=== PATIENT | female | born 1965 | race Two or more races ===

== ENCOUNTER 2021-12-27 17:18 | Emergency (ER) | payer MEDICAID ==
[~2021-12-27] VITALS: Ht 152.4 cm; Wt 54.4 kg
[2021-12-27] MEDS ORDERED: cefTRIAXone W LIDOCAINE 1 GM IM IM ONE (19:45)
[2021-12-27] MEDS ORDERED: AMOX-277 PO (20:02)
[2021-12-27] MEDS ORDERED: IBUP800T26 PO (20:02)
[2021-12-27 20:51] VITALS: BP 139/76
== END 2021-12-27 21:10 | disposition home or self-care (01) ==
LOC: ER 17:18
DX: S61.451A Open bite of right hand, initial encounter (principal); L03.113 Cellulitis of right upper limb; W55.01XA Bitten by cat, initial encounter; Y93.89 Activity, other specified; Y92.89 Other specified places as the place of occurrence of the external cause; Y99.8 Other external cause status
CPT/HCPCS: 96372; 99283; J0696

== ENCOUNTER 2022-02-08 10:42 | Emergency (ER) | payer MEDICAID, OTHER ==
[~2022-02-08] VITALS: Ht 152.4 cm; Wt 52.1 kg
[~2022-02-08 10:42] MED LIST: AMOX-277 PO; IBUP800T26 PO
[2022-02-08] MEDS ORDERED: SODIUM CHLORIDE 0.9% 1,000 ML IV ONE ×2 (11:30→12:45)
[2022-02-08] MEDS ORDERED: FAMOTIDINE (10MG/ML) 2ML VL IV ONE (11:45)
[2022-02-08] MEDS ORDERED: METOCLOPRAMIDE HCL 5MG/ml INJ 2ml VIAL IV ONE (11:45)
[2022-02-08] MEDS ORDERED: KETOROLAC TROMETH 30 MG/ML 1ML VIAL IV ONE (11:45)
[2022-02-08 11:57] LABS: Basophils # (auto) 0 10 ^3/uL (0-0.2); Basophils % (auto) 0.8 % (0.0-2.0); Eosinophils # (auto) 0.3 10 ^3/uL (0-0.8); Hematocrit 38.2 % (36.0-46.0); Hemoglobin 12.1 g/dL (12.2-16.2); Lymphocytes # (auto) 1.7 10 ^3/uL (0.4-5.4); Lymphocytes % (auto) 32.4 % (10.0-50.0); Mean Corpuscular Hgb Conc. 31.8 g/dL (32.0-36.0); Mean Corpuscular Volume 84.9 fL (80.0-100.0); Monocytes # (auto) 0.5 10 ^3/uL (0-1.3); Monocytes % (auto) 9.7 % (0.0-12.0); Neutrophils # (auto) 2.7 10 ^3/uL (1.6-8.6); Neutrophils % (auto) 52.1 % (37.0-80.0); Nucleated Red Blood Cells % 0.1 %; Red Cell Distribution Width 17.8 % (11.8-14.3); White Blood Cell 5.2 10^3/uL (4.4-10.8)
[2022-02-08 12:15] LABS: Urine WBC None Seen /hpf (0 - 5)
[2022-02-08 12:28] LABS: Albumin 3.5 g/dL (3.4-5.0); BUN/Creatinine Ratio 15.4; Calcium 8.7 mg/dL (8.5-10.1); Potassium 3.3 mmol/L (3.5-5.1)
[2022-02-08 12:31] LABS: Bilirubin, Total 0.3 mg/dL (0.2-1.0); Total Protein 7.5 g/dL (6.4-8.2)
[2022-02-08 12:34] LABS: Urine Bacteria FEW /hpf (None Seen); Urine Blood Negative /uL (Negative); Urine Specific Gravity 1.002 (1.001-1.035)
[2022-02-08 12:51] LABS: Amphetamine Screen, Urine NEGATIVE (NEGATIVE); Barbiturate Scree,Urine NEGATIVE (NEGATIVE); Benzodiazephine Screen, Urine NEGATIVE (NEGATIVE); Cannabinoid Screen, Urine NEGATIVE (NEGATIVE); Cocaine Screen, Urine NEGATIVE (NEGATIVE); Opiate Scree,Urine NEGATIVE (NEGATIVE); Phencyclidine Screen, Urine NEGATIVE (NEGATIVE)
[2022-02-08] MEDS ORDERED: DICY10CA PO (13:04)
[2022-02-08] MEDS ORDERED: OMEP-434 PO (13:04)
[2022-02-08] MEDS ORDERED: METO-281 PO (13:04)
[2022-02-08 13:20] VITALS: BP 115/65
== END 2022-02-08 13:41 | disposition home or self-care (01) ==
LOC: ER 10:42
DX: K29.20 Alcoholic gastritis without bleeding (principal); F10.10 Alcohol abuse, uncomplicated; Z79.1 Long term (current) use of non-steroidal anti-inflammatories (NSAID); Z79.2 Long term (current) use of antibiotics; Z79.899 Other long term (current) drug therapy; Y90.2 Blood alcohol level of 40-59 mg/100 ml
CPT/HCPCS: 36415; 76705; 80053; 80307; 80320; 81001; 83690; 85025; 96361; 96374; 96375; 99284; J1885; J2765; J3490; J7030

== ENCOUNTER 2024-06-02 16:16 | Emergency (ER) | payer OTHER ==
[~2024-06-02] VITALS: Ht 152.4 cm; Wt 54.0 kg
[~2024-06-02 16:16] MED LIST changes: -AMOX-277 PO; +AMOX875T4 PO; +IBUP-1455 PO; -IBUP800T26 PO; +METO-281 PO; +OMEP-434 PO
[2024-06-02 16:18] VITALS: BP 162/71; RESP 18; O2SAT 98
[2024-06-02 16:33] LABS: Basophils # (auto) 0 10 ^3/uL (0-0.2); Eosinophils # (auto) 0.3 10 ^3/uL (0-0.8); Lymphocytes # (auto) 2.8 10 ^3/uL (0.4-5.4); Monocytes # (auto) 0.6 10 ^3/uL (0-1.3); Neutrophils # (auto) 3.2 10 ^3/uL (1.6-8.6)
[2024-06-02 16:34] LABS: Basophils % (auto) 0.4 % (0.0-2.0); Eosinophils % (auto) 3.9 % (0.0-7.0); Hematocrit 35.6 % (36.0-46.0); Hemoglobin 11.7 g/dL (12.2-16.2); Lymphocytes % (auto) 40.8 % (10.0-50.0); Mean Corpuscular Hemoglobin 25.5 pg (28.0-32.0); Mean Corpuscular Hgb Conc. 32.7 g/dL (32.0-36.0); Monocytes % (auto) 8.6 % (0.0-12.0); Neutrophils % (auto) 46.3 % (37.0-80.0); Nucleated Red Blood Cells % 0.2 %; Platelet Count (auto) 221 10^3/uL (140-450); Red Blood Cells 4.57 10^6/uL (4.0-5.20); Red Cell Distribution Width 17.2 % (11.8-14.3); White Blood Cell 6.9 10^3/uL (4.4-10.8)
[2024-06-02 16:50] LABS: Alanine Aminotransferase 31 U/L (7-40); Albumin 4.3 g/dL (3.2-4.8); Alkaline Phosphatase 76 U/L (46-116); Anion Gap 7 (5-15); Aspartate Aminotransferase 15 U/L (13-40); BUN/Creatinine Ratio 17.9 (10.0-20.0); Bilirubin, Total 0.2 mg/dL (0.2-1.0); Blood Urea Nitrogen 14 mg/dL (9-23); Calcium 9.1 mg/dL (8.7-10.4); Carbon Dioxide 27 mmol/L (20-31); Chloride 107 mmol/L (98-107); Glucose 95 mg/dL (74-106); Potassium 3.6 mmol/L (3.5-5.1); Sodium 141 mmol/L (136-145)
[2024-06-02 16:51] LABS: Total Protein 6.7 g/dL (5.7-8.2)
--- NOTE | 2024-06-02 16:57 | DVH ---
EXAM: XY CHEST XRAY 1 VIEW TECHNIQUE: Single frontal chest radiograph CLINICAL HISTORY: chest pain COMPARISON: None Findings/Impression: Frontal chest radiograph demonstrates no acute osseous or superficial soft tissue abnormalities. The trachea is midline. The cardiac silhouette and mediastinum are within normal limits. No pneumothorax, pleural effusions, or consolidations.
--- NOTE | 2024-06-02 17:01 | ED.PDOC ---
HPI Comments A 59 year old female presents to the ED with a chief complaint of chest pain onset today about 12 hours ago. Patient states she is currently experiencing LT sided chest pain, non radiating and describes it as a sharp pain. She noticed pain is worse with movement and touch. Denies any past medical history as well as shortness of breath, nausea, vomiting, diarrhea, headache, dizziness. No other symptoms or modifying factors present at this time. Chief Complaint: Chest Pain Time Seen by MD: 16:50 Primary Care Provider: NONE Reviewed Notes: Medications, Allergies Allergies: Coded Allergies: NO KNOWN ALLERGIES (Unverified , 05/01/15) Home Meds Active Scripts Omeprazole Magnesium (Omeprazole) 20 Mg Tab, 20 MG PO BID, #40 TAB Prov:JIA VITALE 02/08/22 Metoclopramide Hcl (Reglan) 10 Mg Tab, 10 MG PO BID, #20 TAB Prov:JIA VITALE 02/08/22 Ibuprofen Micronized (Ibuprofen) 800 Mg Tab, 800 MG PO TID PRN, #30 TAB Prov:SUMMER EDGE 12/27/21 Amoxicillin & Pot Clavulanate (Amoxicillin/Potassium Cla) 875 Mg Tab, 1 TAB PO BID for 10 Days, #20 TAB Prov:SUMMER EDGE 12/27/21 Information Source: Patient Mode of Arrival: Ambulatory Severity: Moderate Timing: Hours Duration: Since onset Prehospital treatment: None Location: Chest (L) Quality: Sharp Cardiac Risk Factors: None PE Risk Factors: None History of: None Modifying Factors: Movement Associated Signs and Symptoms: None Past Medical History PAST MEDICAL HISTORY: Denies Surgical History: Denies all surgeries OCC THERAPIST History: No Pertinent OCC THERAPIST History Family History Family History: Reviewed,noncontributory to illness Social History Smoker: Non-Smoker Alcohol: Heavy Drugs: Denies Drug Use Lives In: Home Constitutional: denies: chills, diaphoresis, fatigue, fever, malaise, sweats, weakness, others EENTM: denies: blurred vision, double vision, ear bleeding, ear discharge, ear drainage, ear pain, ear ringing, eye pain, eye redness, hearing loss, mouth pain, mouth swelling, nasal discharge, nose bleeding, nose congestion, nose pain, photophobia, tearing, throat pain, throat swelling, voice changes, others Respiratory: denies: cough, hemoptysis, orthopnea, SOB at rest, shortness of breath, SOB with excertion, stridor, wheezing, others Cardiovascular: reports: chest pain; denies: dizzy spells, diaphoresis, Dyspnea on exertion, edema, irregular heart beat, left arm pain, lightheadedness, palpitations, PND, syncope, others Gastrointestinal: denies: abdomen distended, abdominal pain, blood streaked bowels, constipated, diarrhea, dysphagia, difficulty swallowing, hematemesis, melena, nausea, poor appetite, poor fluid intake, rectal bleeding, rectal pain, vomiting, others Genitourinary: denies: abnormal vagina bleeding, burning, dyspareunia, dysuria, flank pain, frequency, hematuria, incontinence, pain, , vagina discharge, urgency, others Neurological: denies: dizziness, fainting, headache, left sided numbness, left sided weakness, numbness, paresthesia, pre-existing deficit, right sided numbness, right sided weakness, seizure, speech problems, tingling, tremors, we akness, others Musculoskeletal: denies: back pain, gout, joint pain, joint swelling, muscle pain, muscle stiffness, neck pain, others Integumetry: denies: bruises, change in color, change in hair/nails, dryness, laceration, lesions, lumps, rash, wounds, others Allergic/Immunocompromised: denies: Difficulty Healing, Frequent Infections, Hives, Itching, others Hematologic/Lymphatic: denies: anemia, blood clots, easy bleeding, easy bruising, swollen glands, others Endocrine: denies: excessive hunger, excessive sweating, excessive thirst, excessive urination, flushing, intolerance to cold, intolerance to heat, unexplained weight gain, unexplained weight loss, others Psychiatric: denies: anxiety, bipolar disorder, depression, hopeless, panic disorder, schizophrenia, sleepless, suicidal, others All Other Systems: Reviewed and Negative Physical Exam General Appearance: No Apparent Distress, Normal HEENT: Normal ENT Inspection, Pharynx Normal, TMs Normal Neck: Full Range of Motion, Non-Tender, Normal, Normal Inspection Respiratory: Chest Non-Tender, Lungs Clear, No Accessory Muscle Use, No Respiratory Distress, Normal Breath Sounds Cardiovascular: No Edema, No JVD, No Murmur, No Gallop, Normal Peripheral Pulses, Regular Rate/Rhythm Breast Exam: Deferred Gastrointestinal: No Organomegaly, Non Tender, No Pulsatile Mass, Normal Bowel Sounds, Soft Genitalia: Deferred Pelvic: Deferred Rectal: Deferred Extremities: No calf tenderness, Normal capillary refill, Normal inspection, Normal range of motion, Non-tender, No pedal edema Musculoskeletal : Apperance: Normal Neurologic: Alert, triage register nurse II-XII nml as Tested, No Motor Deficits, Normal Affect, Normal Mood, No Sensory Deficits Cerebellar Function: Normal Reflexes: Normal Skin: Dry, Normal Color, Warm Lymphatic: No Adenopathy EKG EKG : Pulse Rate (adult): 70 Cardiac Rhythm: NSR Comments low voltage, no STEMI Was a procedure done? Was a procedure done?: No CP Differential Dx Differential Diagnosis: A-fib, A-Flutter, Angina, Heart Failure, Pulmonary Embolus, V-Fib, V-Tach, Other Differential Diagnosis: CHF Differential Diagnosis: Angina, Aortic dissection, Myocardial Infarction, Pulmonary Embolus, Other X-Ray, Labs, Meds, VS Vital Signs Date Time Temp Pulse Resp B/P (MAP) Pulse Ox O2 Delivery O2 Flow Rate FiO2 06/02/24 17:16 65 06/02/24 16:20 70 06/02/24 16:18 97.8 65 18 162/71 (101) 98 Lab Test 06/02/24 16:20 Range/Units White Blood Count 6.9 4.4-10.8 10^3/uL Red Blood Count 4.57 4.0-5.20 10^6/uL Hemoglobin 11.7 L 12.2-16.2 g/dL Hematocrit 35.6 L 36.0-46.0 % Mean Corpuscular Volume 78.0 L 80.0-100.0 fL Mean Corpuscular Hemoglobin 25.5 L 28.0-32.0 pg Mean Corpuscular Hemoglobin Concent 32.7 32.0-36.0 g/dL Red Cell Distribution Width 17.2 H 11.8-14.3 % Platelet Count 221 140-450 10^3/uL Mean Platelet Volume 7.5 6.9-10.8 fL Neutrophils (%) (Auto) 46.3 37.0-80.0 % Lymphocytes (%) (Auto) 40.8 10.0-50.0 % Monocytes (%) (Auto) 8.6 0.0-12.0 % Eosinophils (%) (Auto) 3.9 0.0-7.0 % Basophils (%) (Auto) 0.4 0.0-2.0 % Neutrophils # (Auto) 3.2 1.6-8.6 10 ^3/uL Lymphocytes # (Auto) 2.8 0.4-5.4 10 ^3/uL Monocytes # (Auto) 0.6 0-1.3 10 ^3/uL Eosinophils # (Auto) 0.3 0-0.8 10 ^3/uL Basophils # (Auto) 0 0-0.2 10 ^3/uL Nucleated Red Blood Cells 0.2 % Prothrombin Time 11.4 9.3-11.8 sec Prothrombin Time INR 1.08 0.9-1.15 Activated Partial Thromboplast Time 27.3 24.5-34.5 SEC Sodium Level 141 136-145 mmol/L Potassium Level 3.6 3.5-5.1 mmol/L Chloride Level 107 98-107 mmol/L Carbon Dioxide Level 27 20-31 mmol/L Anion Gap 7 5-15 Blood Urea Nitrogen 14 9-23 mg/dL Creatinine 0.78 0.550-1.02 mg/dL Glomerular Filtration Rate Calc 88 >90 mL/min BUN/Creatinine Ratio 17.9 10.0-20.0 Serum Glucose 95 74-106 mg/dL Calcium Level 9.1 8.7-10.4 mg/dL Total Bilirubin 0.2 0.2-1.0 mg/dL Aspartate Amino Transferase (AST) 15 13-40 U/L Alanine Aminotransferase (ALT) 31 7-40 U/L Alkaline Phosphatase 76 46-116 U/L Troponin I High Sensitivity < 3 L </=34 ng/L Total Protein 6.7 5.7-8.2 g/dL Albumin 4.3 3.2-4.8 g/dL [place] [id number] Ph: [phone] DIAGNOSTIC IMAGING Diagnostic Imaging Report : [id number] Signed PATIENT: ROSANNE BUICT: [id number] UNIT: [id number] : 1965 LOC: ER ROOM / BED: / AGE / SEX: 59 / F ADM STATUS: REG ER SERVICE 1624 ORDERING PHYSICIAN: ZARINA MONREAL MD PROCEDURE(s): CXR1 - CHEST XRAY 1 VIEW REASON: chest pain ORDER NUMBER(s): [id number], ACCESSION NUMBER(s): [id number] EXAM: XY CHEST XRAY 1 VIEW TECHNIQUE: Single frontal chest radiograph CLINICAL HISTORY: chest pain COMPARISON: None Findings/Impression: Frontal chest radiograph demonstrates no acute osseous or superficial soft tissue abnormalities. The trachea is midline. The cardiac silhouette and mediastinum are within normal limits. No pneumothorax, pleural effusions, or consolidations. ATED BY: KINGA CHEN DO DICTATED DATE/TIME: 06/02/241653 SIGNED BY: KINGA CHEN DO SIGNED DATE/TIME: 06/02/241653 CC: Time of 1ST Reevaluation: 17:20 Reevaluation 1ST: Unchanged Time of 2ND Reevaluation: 18:00 Reevaluation 2ND: Improved Patient Education/Counseling: Diagnosis, Treatment, Prognosis Family Education/Counseling: No Family Present Departure 1 Departure Time of Disposition: 18:00 Impression: Primary Impression: Atypical chest pain Disposition: 01 HOME / SELF CARE / HOMELESS Condition: Stable Discharged With: Self Critical Care Note Critical Care Time?: No Stability Stability form required: No Heart Score Heart Score: Heart Score Response (Comments) Value History Slightly Suspicious 0 EKG Normal 0 Age >65 2 Risk Factors 1 or 2 risk factors 1 Troponin Normal limit 0 Total 3 I personally scribed for ZARINA MONREAL MD ([email or web address]) on 06/02/24 at 17:01. Electronically submitted by Janneth Barber ([email or web address]). I personally scribed for ZARINA MONREAL MD ([email or web address]) on 06/02/24 at 17:02. Electronically submitted by Janneth Barber [email or web address]). ZARINA MONREAL MD Jun 02, 2024 17:01
--- NOTE | 2024-06-02 17:12 | ECG ---
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
--- NOTE | 2024-06-02 17:18 | ECG ---
[facility] Test Date: 2024-06-02 Test Time: 17:16:59 Pat Name: CHERI BUI Department: er Room: Gender: F Business Analytics Specialist: tito : 1965 Requested By: GISELLE ARIZMENDI Order Number: [id number] Reading MD: Faustino Hoyt Measurements Intervals [place] Rate: 65 P: 53 IN: 179 QRS: 52 QRSD: 75 T: 63 QT: 428 QTc: 445 Interpretive Statements Sinus rhythm Low voltage, precordial leads Electronically Signed On 06-04-2024 17:37:44 PST by Faustino Hoyt Please click the below link to view image of tracing.
[2024-06-02 17:23] LABS: INR 1.08 (0.9-1.15); Partial Thromboplastin Time 27.3 SEC (24.5-34.5); Prothrombin Time 11.4 sec (9.3-11.8)
[2024-06-02 19:56] VITALS: PULSE 70
== END 2024-06-02 20:25 | disposition home or self-care (01) ==
LOC: ER 16:16
DX: R07.89 Other chest pain (principal); F10.90 Alcohol use, unspecified, uncomplicated; Z79.899 Other long term (current) drug therapy; Y90.0 Blood alcohol level of less than 20 mg/100 ml
CPT/HCPCS: 36415; 71045; 80053; 84484; 85025; 85610; 85730; 93005

== ENCOUNTER 2024-12-29 13:49 | Inpatient (IN) | payer OTHER ==
[~2024-12-29] VITALS: Ht 152.4 cm; Wt 66.6 kg
--- NOTE | 2024-12-29 14:28 | ED.PDOC ---
GI ASSESSMENT HPI Comments 59 y/o F, with PMHx of alcohol abuse, anxiety, HTN, HLD, and COPD presents to the ED for CC of GI Bleed. Patient states, she was relayed to the ED by dmandy hernandez and an Hbg reading of 7.9. Patient relays, associated symptoms of dizziness, fatigue, and weakness which have persisted for xmultiple days. Patient denies epistaxis, nausea, vomiting, fever, body-aches, or headache. No other symptoms or modifying factors present at this time. Time Seen by MD: 14:20 Primary Care Provider: NONE Reviewed Notes: Nurses Notes, Medications, Allergies Allergies: Coded Allergies: NO KNOWN ALLERGIES (Unverified , 05/01/15) Home Meds Active Scripts Omeprazole Magnesium (Omeprazole) 20 Mg Tab, 20 MG PO BID, #40 TAB Prov:JIA VITALE 02/08/22 Metoclopramide Hcl (Reglan) 10 Mg Tab, 10 MG PO BID, #20 TAB Prov:JIA VITALE 02/08/22 Ibuprofen Micronized (Ibuprofen) 800 Mg Tab, 800 MG PO TID PRN, #30 TAB Prov:SUMMER EDGE 12/27/21 Amoxicillin & Pot Clavulanate (Amoxicillin/Potassium Cla) 875 Mg Tab, 1 TAB PO BID for 10 Days, #20 TAB Prov:SUMMER EDGE 12/27/21 Information Source: Patient Mode of Arrival: Ambulatory Timing: Minutes Duration: Since onset Prehospital treatment: None Quality: None Vomitus: None Stool: Black Severity: Moderate Recent: None Recent Hx of: None Pain Location: None Modifying Factors: Nothing Associated sign and symptoms: Melena Past Medical History PAST MEDICAL HISTORY: Anxiety, COPD, High Lipids, HTN Surgical History: Tubal Ligation MAINTENANCE SERVICE TECHNICIAN History: No Pertinent MAINTENANCE SERVICE TECHNICIAN History Family History Family History: Reviewed,noncontributory to illness Social History Smoker: Quit Greater Than 1 Year Alcohol: Heavy Drugs: Denies Drug Use Lives In: Home Constitutional: reports: fatigue; denies: chills, diaphoresis, fever, malaise, sweats, weakness, others EENTM: denies: blurred vision, double vision, ear bleeding, ear discharge, ear drainage, ear pain, ear ringing, eye pain, eye redness, hearing loss, mouth pain, mouth swelling, nasal discharge, nose bleeding, nose congestion, nose pain, photophobia, tearing, throat pain, throat swelling, voice changes, others Respiratory: denies: cough, hemoptysis, orthopnea, SOB at rest, shortness of breath, SOB with excertion, stridor, wheezing, others Cardiovascular: denies: chest pain, dizzy spells, diaphoresis, Dyspnea on exertion, edema, irregular heart beat, left arm pain, lightheadedness, palpitations, PND, syncope, others Gastrointestinal: reports: abdominal pain, melena; denies: abdomen distended, blood streaked bowels, constipated, diarrhea, dysphagia, difficulty swallowing, hematemesis, nausea, poor appetite, poor fluid intake, rectal bleeding, rectal pain, vomiting, others Genitourinary: denies: abnormal vagina bleeding, burning, dyspareunia, dysuria, flank pain, frequency, hematuria, incontinence, pain, , vagina discharge, urgency, others Neurological: reports: dizziness; denies: fainting, headache, left sided numbness, left sided weakness, numbness, paresthesia, pre-existing deficit, right sided numbness, right sided weakness, seizure, speech problems, tingling, tremors, weakness, others Musculoskeletal: denies: back pain, gout, joint pain, joint swelling, muscle pain, muscle stiffness, neck pain, others Integumetry: denies: bruises, change in color, change in hair/nails, dryness, laceration, lesions, lumps, rash, wounds, others Hematologic/Lymphatic: denies: anemia, blood clots, easy bleeding, easy bruising, swollen glands, others Endocrine: denies: excessive hunger, excessive sweating, excessive thirst, excessive urination, flushing, intolerance to cold, intolerance to heat, unexplained weight gain, unexplained weight loss, others Psychiatric: denies: anxiety, bipolar disorder, depression, hopeless, panic disorder, schizophrenia, sleepless, suicidal, others All Other Systems: Reviewed and Negative Physical Exam General Appearance: Moderate Distress HEENT: Normal ENT Inspection, Pharynx Normal, TMs Normal Neck: Full Range of Motion, Non-Tender, Normal, Normal Inspection Respiratory: Chest Non-Tender, Lungs Clear, No Accessory Muscle Use, No Respiratory Distress, Normal Breath Sounds Cardiovascular: No Edema, No JVD, No Murmur, No Gallop, Normal Peripheral Pulses, Regular Rate/Rhythm Breast Exam: Deferred Gastrointestinal: No Organomegaly, Non Tender, No Pulsatile Mass, Normal Bowel Sounds, Soft Genitalia: Deferred Pelvic: Deferred Rectal: Deferred Extremities: No calf tenderness, Normal capillary refill, Normal inspection, Normal range of motion, Non-tender, No pedal edema Musculoskeletal : Apperance: Normal Neurologic: Alert, it security architect II-XII nml as Tested, Motor Weakness, Normal Affect, Normal Mood, No Sensory Deficits Cerebellar Function: Normal Reflexes: Normal Skin: Dry, Normal Color, Warm Lymphatic: No Adenopathy Was a procedure done? Was a procedure done?: No GI differential Dx Differential Diagnosis: Diverticular disease, GI hemorrhage, Inflammatory BD, Ischemic Bowel X-Ray, Labs, Meds, VS Lab Test 12/29/24 14:30 12/29/24 14:19 Range/Units White Blood Count 5.9 4.4-10.8 10^3/uL Red Blood Count 4.78 4.0-5.20 10^6/uL Hemoglobin 7.9 L 12.2-16.2 g/dL Hematocrit 26.6 L 36.0-46.0 % Mean Corpuscular Volume 55.7 L 80.0-100.0 fL Mean Corpuscular Hemoglobin 16.6 L 28.0-32.0 pg Mean Corpuscular Hemoglobin Concent 29.9 L 32.0-36.0 g/dL Red Cell Distribution Width 18.7 H 11.8-14.3 % Platelet Count 318 140-450 10^3/uL Mean Platelet Volume 8.5 6.9-10.8 fL Neutrophils (%) (Auto) 55.9 37.0-80.0 % Lymphocytes (%) (Auto) 26.0 10.0-50.0 % Monocytes (%) (Auto) 13.6 H 0.0-12.0 % Eosinophils (%) (Auto) 3.7 0.0-7.0 % Basophils (%) (Auto) 0.8 0.0-2.0 % Neutrophils # (Auto) 3.3 1.6-8.6 10 ^3/uL Lymphocytes # (Auto) 1.5 0.4-5.4 10 ^3/uL Monocytes # (Auto) 0.8 0-1.3 10 ^3/uL Eosinophils # (Auto) 0.2 0-0.8 10 ^3/uL Basophils # (Auto) 0.1 0-0.2 10 ^3/uL Nucleated Red Blood Cells 0.1 % Platelet Estimate Adequate Hypochromasia (manual) Marked Microcytosis Marked Sodium Level 140 136-145 mmol/L Potassium Level 4.1 3.5-5.1 mmol/L Chloride Level 108 H 98-107 mmol/L Carbon Dioxide Level 23 20-31 mmol/L Anion Gap 9 5-15 Blood Urea Nitrogen 6 L 9-23 mg/dL Creatinine 0.75 0.550-1.02 mg/dL Glomerular Filtration Rate Calc 92 >90 mL/min BUN/Creatinine Ratio 8.0 L 10.0-20.0 Serum Glucose 120 H 74-106 mg/dL Calcium Level 10.1 8.7-10.4 mg/dL Total Bilirubin 0.3 0.2-1.0 mg/dL Aspartate Amino Transferase (AST) 18 <34 U/L Alanine Aminotransferase (ALT) 15 7-40 U/L Alkaline Phosphatase 185 H 46-116 U/L Total Protein 7.7 5.7-8.2 g/dL Albumin 4.8 3.2-4.8 g/dL Urine Color Colorless Yellow Urine Clarity Clear Clear Urine pH 7.5 5.0-9.0 Urine Specific [place] 1.003 1.001-1.035 Urine Protein Negative Negative Urine Ketones Negative Negative Urine Blood Negative Negative /uL Urine Nitrite Negative Negative Urine Bilirubin Negative Negative Urine Urobilinogen Normal Negative mg/dL Urine Leukocyte Esterase Negative Negative /uL Urine RBC <1 0 - 4 /hpf Urine Microscopic WBC < 1 0-5 /HPF Urine Squamous Epithelial Cells Few <5 /hpf Urine Bacteria Few H None Seen /hpf Urine Glucose Normal Normal mg/dL CT ABD PEL : IMPRESSION: 1. No acute pathology in the pelvis. Note made the study results are severely limited lack of IV and oral contrast Urine test is negative The patient's CBC shows anemia with a hemoglobin of 7.9 and hematocrit of 26 At this time, the patient is being admitted to the hospitalist The patient's diagnosis autonomic dysfunction Images Reviewed?: Images reviewed and evaluated by me Time of 1ST Reevaluation: 14:50 Reevaluation 1ST: Unchanged Patient Education/Counseling: Diagnosis, Treatment, Prognosis Family Education/Counseling: No Family Present SEPSIS Sepsis Screen Physician Orders Ct Ab Pel Wo Con-No Oral Or Iv (12/29/24 14:25) Heplock Iv (12/29/24 14:25) Roll Or Tape Edge Machine Operator (12/29/24 14:25) Blood Pressure (12/29/24 14:25) Pulse Oximetry (12/29/24 14:25) Laboratory Tests Test 12/29/24 14:30 White Blood Count 5.9 10^3/uL (4.4-10.8) Departure 1 Departure Time of Disposition: 16:27 Impression: Primary Impression: Autonomic dysfunction Additional Impressions: Severe anemia Lower GI bleed Disposition: ADMITTED INPATIENT Admit to: Tele Condition: Fair Critical Care Note Critical Care Time?: No Stability Stability form required: Yes Unstable for transfer: Telemetry monitoring (Telemetry monitoring required), ED Physician Assesment (Clinical assesment) Heart Score Heart Score: Heart Score Response (Comments) Value History N/A 0 EKG N/A 0 Age N/A 0 Risk Factors N/A 0 Troponin N/A 0 Total 0 I personally scribed for MUNA PARISH MD ([email or web address]) on 12/29/24 at 14:28. Electronically submitted by Asiya Dolan ([email or web address]). I personally scribed for MUNA PARISH MD ([email or web address]) on 12/29/24 at 14:58. Electronically submitted by Asiya Dolan ([email or web address]). MUNA PARISH MD Dec 29, 2024 14:28
[2024-12-29 14:54] LABS: Basophils # (auto) 0.1 10 ^3/uL (0-0.2); Basophils % (auto) 0.8 % (0.0-2.0); Eosinophils # (auto) 0.2 10 ^3/uL (0-0.8); Eosinophils % (auto) 3.7 % (0.0-7.0); Hematocrit 26.6 % (36.0-46.0); Hemoglobin 7.9 g/dL (12.2-16.2); Lymphocytes # (auto) 1.5 10 ^3/uL (0.4-5.4); Mean Corpuscular Hemoglobin 16.6 pg (28.0-32.0); Mean Corpuscular Hgb Conc. 29.9 g/dL (32.0-36.0); Mean Corpuscular Volume 55.7 fL (80.0-100.0); Monocytes # (auto) 0.8 10 ^3/uL (0-1.3); Monocytes % (auto) 13.6 % (0.0-12.0); Neutrophils # (auto) 3.3 10 ^3/uL (1.6-8.6); Neutrophils % (auto) 55.9 % (37.0-80.0); Nucleated Red Blood Cells % 0.1 %; Platelet Count (auto) 318 10^3/uL (140-450); Red Blood Cells 4.78 10^6/uL (4.0-5.20); Red Cell Distribution Width 18.7 % (11.8-14.3); White Blood Cell 5.9 10^3/uL (4.4-10.8)
[2024-12-29 14:55] LABS: Hypochromia Marked; Platelet Estimate Adequate
--- NOTE | 2024-12-29 14:56 | DVH ---
CT abdomen pelvis without IV contrast INDICATION: pain TECHNIQUE: Serial axial images were performed through the abdomen and pelvis and then reformatted in the sagittal and coronal plane. All CT scans at this medical facility are performed using dose modula tion techniques as appropriate to a performed exam including the following: Automated exposure contro l was utilized; adjustment of the MA and/or KvP according to patient size; and use of iterative recon struction technique. FINDINGS: Liver and spleen are normal in size without focal mass. No renal masses, stones or hydronep hrosis. No masses or enlargement of the adrenal glands or pancreas. No biliary dilatation. No gallsto elly. No distention of bowel loops to suggest mechanical obstruction of bowel. The appendix is normal in appearance. No free fluid. Within the pelvis, bladder is smooth walled without stones. No abnormal masses or fluid collections. IMPRESSION: 1. No acute pathology in the pelvis. Note made the study results are severely limited lack of IV and oral contrast Computed Tomographic Radiation Dosimetry Report: Total CTDI vol = 6.8 mGy Total DLP = 347 mGy-cm Low dose protocols were performed.
[2024-12-29 15:06] LABS: Urine Bacteria FEW /hpf (None Seen); Urine Blood Negative /uL (Negative); Urine Clarity Clear (Clear); Urine Color Colorless (Yellow); Urine Protein, UAD Negative (Negative); Urine Specific Gravity 1.003 (1.001-1.035); Urine Squamous Epithelial Cell FEW /hpf (<5); Urine Urobilinogen Normal (Negative); Urine pH 7.5 (5.0-9.0)
[2024-12-29 15:07] LABS: Urine WBC < 1 /HPF (0-5)
[2024-12-29 15:12] LABS: Alanine Aminotransferase 15 U/L (7-40); Albumin 4.8 g/dL (3.2-4.8); Anion Gap 9 (5-15); Aspartate Aminotransferase 18 U/L (<34); Bilirubin, Total 0.3 mg/dL (0.2-1.0); Calcium 10.1 mg/dL (8.7-10.4); Carbon Dioxide 23 mmol/L (20-31); Potassium 4.1 mmol/L (3.5-5.1); Sodium 140 mmol/L (136-145); Total Protein 7.7 g/dL (5.7-8.2)
[2024-12-29 15:13] LABS: Alkaline Phosphatase 185 U/L (46-116); Blood Urea Nitrogen 6 mg/dL (9-23); Chloride 108 mmol/L (98-107); Glucose 120 mg/dL (74-106)
[2024-12-29] MEDS ORDERED: NITROGLYCERIN 0.4 MG SL TAB SL PRN (16:00)
[2024-12-29] MEDS ORDERED: MORPHINE SULFATE INJ 2 MG/ml SYRG IV PRN ×2 (16:00)
--- NOTE | 2024-12-29 16:02 | DVHHP2 ---
Admitting Diagnosis: GI bleed History of Present Illness 59 year old female with history of alcohol abuse, anxiety, HTN, HLD, and COPD is complaining of black stool. Patient was seen by and was told she had a hemoglobin of 7.9. Patient states she is having dizziness and weakness. While in the emergency department the patient was evaluated by the provider. Patient will be admitted for further evaluation and treatment. I discussed admission with the patient/family and is in agreement to treatment plan. Allergies: Coded Allergies: NO KNOWN ALLERGIES (Unverified , 05/01/15) Home Meds Active Scripts Omeprazole Magnesium (Omeprazole) 20 Mg Tab, 20 MG PO BID, #40 TAB Prov:JIA VITALE 02/08/22 Metoclopramide Hcl (Reglan) 10 Mg Tab, 10 MG PO BID, #20 TAB Prov:JIA VITALE 02/08/22 Ibuprofen Micronized (Ibuprofen) 800 Mg Tab, 800 MG PO TID PRN, #30 TAB Prov:SUMMER EDGE 12/27/21 Reported Medications Ropinirole Hydrochloride (Ropinirole Hcl) 3 Mg Tab, 1 TAB PO 12/30/24 Atorvastatin Calcium (ATORVASTATIN CALCIUM) 20 Mg Tab, 20 MG PO DAILY, TAB 12/30/24 Pantoprazole Sodium (PANTOPRAZOLE SODIUM) 40 Mg Inj, 40 MG PO, INJ 12/30/24 Famotidine (PEPCID TABLET) 20 Mg Tb, 20 MG PO, TAB 12/30/24 Gabapentin (Gabapentin) 300 Mg Cap, 300 MG PO, CAP 12/30/24 Losartan Potassium (Losartan Potassium) 100 Mg Tab, 100 MG PO, TAB 12/30/24 Aspirin (AVANI ASPIRIN EC LOW DOSE) 81 Mg Tab, 81 MG PO, TAB 12/30/24 Propranolol HCl (Propranolol Hydrochloride) 40 Mg Tab, 40 MG PO, TAB 12/30/24 Chlorthalidone (Chlorthalidone) 25 Mg Tab, 25 MG PO, TAB 12/30/24 Ropinirole Hydrochloride (Ropinirole Hcl) 2 Mg Tab, 2 MG PO, TAB 12/30/24 Magnesium Oxide (MAGNESIUM OXIDE) 400 Mg Tab, 250 MG PO, TAB 12/30/24 Discontinued Reported Medications Omeprazole (Prilosec Susp (For Gt)) 20 Mg Ss, 40 MG PO, ML 12/30/24 Metoclopramide Hcl (Metoclopramide Hcl) 10 Mg Tab, 10 MG PO, TAB 12/30/24 Current Medications Current Medications Medications (Trade) Dose Ordered Sig/Jn Route PRN Reason Start Time Stop Time Status Last Admin Sodium Chloride 1,000 ml @ 120 mls/hr Q8H20M IV 12/29/24 16:00 12/30/24 15:50 Acetaminophen/ Hydrocodone Bitart (Beatrice 5/325MG Tab) 1 tab Q4HP PRN PO MODERATE PAIN (4-6 PAIN SCALE) 12/29/24 16:00 12/30/24 06:28 Ondansetron HCl (Zofran) 4 mg Q4HP PRN IV NAUSEA / VOMITING 12/29/24 16:00 Hold 12/30/24 12:23 Acetaminophen (Tylenol Tablet) 650 mg Q6HP PRN PO PAIN SCALE 1-3 OR TEMP>100.4 12/29/24 16:00 12/30/24 12:16 Morphine Sulfate 2 mg Q4HPRN PRN IV SEVERE PAIN (7-10 PAIN SCALE) 12/29/24 16:00 Nitroglycerin (Ntrostat Sublingual) 0.4 mg Q5MINP PRN SL FOR CHEST PAIN 12/29/24 16:00 Morphine Sulfate 2 mg Q30M PRN IV FOR CHEST PAIN 12/29/24 16:00 Pantoprazole Sodium (Protonix) 40 mg BID IV 12/29/24 22:00 12/30/24 08:46 Metoclopramide HCl (Reglan Injection) 10 mg Q6HPRN PRN IV NAUSEA / VOMITING 12/30/24 15:45 12/30/24 15:44 Review of Systems Black stool Dizziness Weakness Vital Signs Vital Signs Date Time Temp Pulse Resp B/P (MAP) Pulse Ox O2 Delivery O2 Flow Rate FiO2 12/30/24 12:45 97.6 80 18 155/74 (101) 98 97.6 12/29/24 19:59 Room Air* 0 21 Results Labs Test 12/30/24 09:57 12/30/24 03:48 12/29/24 14:30 12/29/24 14:19 Range/Units Prothrombin Time 10.9 9.3-11.8 sec Prothrombin Time INR 1.03 0.9-1.15 Activated Partial Thromboplast Time 24.2 L 24.5-34.5 SEC White Blood Count 5.5 4.4-10.8 10^3/uL Red Blood Count 4.34 4.0-5.20 10^6/uL Hemoglobin 7.3 L 12.2-16.2 g/dL Hematocrit 24.3 L 36.0-46.0 % Mean Corpuscular Volume 56.1 L 80.0-100.0 fL Mean Corpuscular Hemoglobin 16.8 L 28.0-32.0 pg Mean Corpuscular Hemoglobin Concent 30.0 L 32.0-36.0 g/dL Red Cell Distribution Width 18.7 H 11.8-14.3 % Platelet Count 259 140-450 10^3/uL Mean Platelet Volume 8.5 6.9-10.8 fL Neutrophils (%) (Auto) 49.3 37.0-80.0 % Lymphocytes (%) (Auto) 33.4 10.0-50.0 % Monocytes (%) (Auto) 12.3 H 0.0-12.0 % Eosinophils (%) (Auto) 4.3 0.0-7.0 % Basophils (%) (Auto) 0.7 0.0-2.0 % Neutrophils # (Auto) 2.7 1.6-8.6 10 ^3/uL Lymphocytes # (Auto) 1.8 0.4-5.4 10 ^3/uL Monocytes # (Auto) 0.7 0-1.3 10 ^3/uL Eosinophils # (Auto) 0.2 0-0.8 10 ^3/uL Basophils # (Auto) 0 0-0.2 10 ^3/uL Nucleated Red Blood Cells 0.1 % Sodium Level 140 136-145 mmol/L Potassium Level 4.3 3.5-5.1 mmol/L Chloride Level 106 98-107 mmol/L Carbon Dioxide Level 23 20-31 mmol/L Anion Gap 11 5-15 Blood Urea Nitrogen 7 L 9-23 mg/dL Creatinine 0.67 0.550-1.02 mg/dL Glomerular Filtration Rate Calc 101 >90 mL/min BUN/Creatinine Ratio 10.4 10.0-20.0 Serum Glucose 106 74-106 mg/dL Calcium Level 8.7 8.7-10.4 mg/dL Total Bilirubin 0.3 0.2-1.0 mg/dL Aspartate Amino Transferase (AST) 18 <34 U/L Alanine Aminotransferase (ALT) 14 7-40 U/L Alkaline Phosphatase 175 H 46-116 U/L Total Protein 6.9 5.7-8.2 g/dL Albumin 4.2 3.2-4.8 g/dL Platelet Estimate Adequate Hypochromasia (manual) Marked Microcytosis Marked Plasma/Serum Blood Alcohol < 3.0 <10 mg/dL Urine Color Colorless Yellow Urine Clarity Clear Clear Urine pH 7.5 5.0-9.0 Urine Specific [place] 1.003 1.001-1.035 Urine Protein Negative Negative Urine Ketones Negative Negative Urine Blood Negative Negative /uL Urine Nitrite Negative Negative Urine Bilirubin Negative Negative Urine Urobilinogen Normal Negative mg/dL Urine Leukocyte Esterase Negative Negative /uL Urine RBC <1 0 - 4 /hpf Urine Microscopic WBC < 1 0-5 /HPF Urine Squamous Epithelial Cells Few <5 /hpf Urine Bacteria Few H None Seen /hpf Urine Glucose Normal Normal mg/dL Primary Diagnosis - GI bleed Stop NSAID, PPI, stool for OB, GI consult - EtOH eligibility services representative consult for EtOH, monitoring -Benign essential hypertension Medication, monitoring -COPD Medication, monitoring Plan discussed with: Patient, Other ANTHONY TEMPLETON NP Dec 29, 2024 16:02
[2024-12-29] MEDS: ACETAMINOPHEN 325 MG TAB PO PRN (17:31)
[2024-12-29] MEDS: SODIUM CHLORIDE 0.9% 1,000 ML IV SCH (17:51)
[2024-12-29 18:12] VITALS: BP 139/74; PULSE 78; RESP 20; TEMP 98.3; O2SAT 100
[2024-12-29 19:59] VITALS: PULSE 84; RESP 19; O2SAT 98
[2024-12-29 21:00] VITALS: BP 159/83; PULSE 79; RESP 21; TEMP 98.8; O2SAT 98
[2024-12-29] MEDS: PANTOPRAZOLE 40 MG/10 ML VIAL INJ IV SCH (21:46)
[2024-12-30] MEDS: HYDROcodone-ACET 5/325MG TAB PO PRN (00:28)
[2024-12-30] MEDS ORDERED: MAGN400T40 PO (00:34)
[2024-12-30] MEDS ORDERED: FAMO20TA10 PO (00:45)
[2024-12-30] MEDS ORDERED: PANT1INJ3 PO (00:45)
[2024-12-30] MEDS ORDERED: METO10TA3 PO (00:45)
[2024-12-30] MEDS ORDERED: GABA-1250 PO (00:45)
[2024-12-30] MEDS ORDERED: OME20GT PO (00:45)
[2024-12-30] MEDS ORDERED: CHLO25TA2 PO (00:45)
[2024-12-30] MEDS ORDERED: LOSA-535 PO (00:45)
[2024-12-30] MEDS ORDERED: ASPI-378 PO (00:45)
[2024-12-30] MEDS ORDERED: ROPI2TAB27 PO (00:45)
[2024-12-30] MEDS ORDERED: ATOR20TA50 PO (00:45)
[2024-12-30] MEDS ORDERED: PROP40TA6 PO (00:45)
[2024-12-30 01:00] VITALS: BP 151/66; PULSE 78; RESP 21; TEMP 97.8; O2SAT 98
[2024-12-30] MEDS: TEMAZEPAM 15 MG CAP PO ONE (01:40)
[2024-12-30 04:39] LABS: Basophils # (auto) 0 10 ^3/uL (0-0.2); Eosinophils # (auto) 0.2 10 ^3/uL (0-0.8); Eosinophils % (auto) 4.3 % (0.0-7.0); Hemoglobin 7.3 g/dL (12.2-16.2); Lymphocytes # (auto) 1.8 10 ^3/uL (0.4-5.4); Monocytes # (auto) 0.7 10 ^3/uL (0-1.3); Neutrophils # (auto) 2.7 10 ^3/uL (1.6-8.6); Nucleated Red Blood Cells % 0.1 %
[2024-12-30 04:55] LABS: Alanine Aminotransferase 14 U/L (7-40); Albumin 4.2 g/dL (3.2-4.8); Anion Gap 11 (5-15); Aspartate Aminotransferase 18 U/L (<34); BUN/Creatinine Ratio 10.4 (10.0-20.0); Calcium 8.7 mg/dL (8.7-10.4); Carbon Dioxide 23 mmol/L (20-31); Chloride 106 mmol/L (98-107); Glucose 106 mg/dL (74-106); Potassium 4.3 mmol/L (3.5-5.1); Sodium 140 mmol/L (136-145); Total Protein 6.9 g/dL (5.7-8.2)
[2024-12-30 04:56] LABS: Alkaline Phosphatase 175 U/L (46-116); Basophils % (auto) 0.7 % (0.0-2.0); Bilirubin, Total 0.3 mg/dL (0.2-1.0); Blood Urea Nitrogen 7 mg/dL (9-23); Hematocrit 24.3 % (36.0-46.0); Lymphocytes % (auto) 33.4 % (10.0-50.0); Mean Corpuscular Hemoglobin 16.8 pg (28.0-32.0); Mean Corpuscular Volume 56.1 fL (80.0-100.0); Monocytes % (auto) 12.3 % (0.0-12.0); Neutrophils % (auto) 49.3 % (37.0-80.0); Platelet Count (auto) 259 10^3/uL (140-450); Red Blood Cells 4.34 10^6/uL (4.0-5.20); Red Cell Distribution Width 18.7 % (11.8-14.3); White Blood Cell 5.5 10^3/uL (4.4-10.8)
[2024-12-30 05:00] VITALS: BP_SYST 129; BP_SYST 136; BP_DIAS 64; BP_DIAS 74; PULSE 79; PULSE 83; RESP 19; RESP 22; TEMP 98; TEMP 98.4; O2SAT 98; O2SAT 99
[2024-12-30 09:00] VITALS: BP 138/70; PULSE 78; RESP 18; TEMP 97.6; O2SAT 97
[2024-12-30] MEDS ORDERED: ROPI3TAB16 PO (09:37)
--- NOTE | 2024-12-30 09:37 | DVHPN2 ---
Progress Note - Dictate Date Seen: Dec 30, 2024 Medical Necessity Reason Pt with a Central, PICC or Fol: No vital signs Vital Sign Date Time Temp Pulse Resp B/P (MAP) Pulse Ox O2 Delivery O2 Flow Rate FiO2 12/30/24 09:00 97.6 78 18 138/70 (92) 97 97.6 12/29/24 19:59 Room Air* 0 21 Total Intake and Output 12/29/24 12/29/24 12/30/24 15:00 23:00 07:00 Intake Total 480 ml Balance 480 ml medications Current Medications Medications Dose Ordered Sig/Jn Route Start Time Stop Time Status Last Admin Dose Admin Sodium Chloride 1,000 ml @ 120 mls/hr Q8H20M IV 12/29/24 16:00 12/29/24 17:51 120 MLS/HR Acetaminophen/ Hydrocodone Bitart 1 tab Q4HP PRN PO 12/29/24 16:00 12/30/24 06:28 1 TAB Ondansetron HCl 4 mg Q4HP PRN IV 12/29/24 16:00 Acetaminophen 650 mg Q6HP PRN PO 12/29/24 16:00 12/30/24 04:59 650 MG Morphine Sulfate 2 mg Q4HPRN PRN IV 12/29/24 16:00 Nitroglycerin 0.4 mg Q5MINP PRN SL 12/29/24 16:00 Morphine Sulfate 2 mg Q30M PRN IV 12/29/24 16:00 Pantoprazole Sodium 40 mg BID IV 12/29/24 22:00 12/30/24 08:46 40 MG objective General Appearance: alert, no distress HEENT: EOMI, PERRLA, normal external inspect of ears, no icterus, no nasal drainage Neck: no carotid bruit, no jugular venous distention (JVD), no lymphadenopathy Chest: normal thorax Respiratory: clear to auscultation, normal air movement Cardiovascular: regular rate and rhythm, no diastolic murmur, no jugular venous distention (JVD), no rub, no systolic murmur Abdominal: soft, no hepatomegaly, no mass, no splenomegaly, no tenderness Musculoskeletal: no joint tenderness, no swelling Extremities: normal pulses, no calf tenderness, no clubbing, no cyanosis, no edema Skin: no bruising, no jaundice, no rash Neurological: alert, No focal deficit laboratory and microbiology Laboratory Tests 12/30/24 03:48 Test 12/30/24 03:48 Range/Units Serum Glucose 106 74-106 mg/dL Problem List - GI bleed Stop NSAID, PPI, stool for OB, GI consult - EtOH check services clerk consult for EtOH, monitoring -Benign essential hypertension Medication, monitoring -COPD Medication, monitoring Assessment/Plan Subjective Patient is awake and alert. Objective Patient states she stopped drinking 2 years ago. Patient states she uses Motrin sometimes as needed and she uses Tylenol a lot due to chronic migraines. Patient has a history of COPD. Patient states she had melena for the past several days. No bowel movement reported today. Plan Continue PPI. Continue IV fluids. GI consult. Monitor for active signs or symptoms of bleeding. Patient may need a transfusion if hemoglobin drops below 7. Plan discussed with: Patient, Other ANTHONY TEMPLETON NP Dec 30, 2024 09:37
[2024-12-30 10:29] LABS: INR 1.03 (0.9-1.15); Partial Thromboplastin Time 24.2 SEC (24.5-34.5); Prothrombin Time 10.9 sec (9.3-11.8)
[2024-12-30] MEDS: ONDANSETRON HCL 4 MG/2 ML VIAL IV PRN (12:23)
[2024-12-30 12:45] VITALS: BP 155/74; PULSE 80; RESP 18; TEMP 97.6; O2SAT 98
--- NOTE | 2024-12-30 13:58 | DVHINCON2 ---
GI Consult Consult Note GI consult note Date of Consultation: 12/30/2024 Chief Complaint: GI bleed Referring Physician: JARETH SUTHERLAND H&P: 59-year-old female past medical history of anxiety, hypertension, HLD and COPD presents to ER with complains of GI bleed. Patient complains of black stool for about a week. Patient has nausea and vomiting, improving now. Denies hematemesis. Patient complaining of epigastric pain. Admits to using Motrin about five pills per week. History of heavy alcohol use, quit one year ago per patient. Status post EGD two years ago, diagnosed with H. pylori, completed two sets of treatments for this. Colonoscopy two years ago, unsure about results. Patient takes aspirin last dose yesterday. Patient has pending cardiac consult Past Medical History: Anxiety, COPD, High Lipids, HTN Past Surgical History: Tubal ligation Social History: Smoker: Quit Greater Than 1 Year Alcohol: Quit one year ago Drugs: Denies Drug Use Lives In: Home Family History: Review of Systems: Constitutional: no fever, chill, weight loss HEENT: no eye pain, no hearing loss, no oral lesion, no scleral icterus Heart: no chest pain, no chest pressure Lung: no cough, no dyspnea with exertion Abdomen: see HPI Physical exam: General: NAD, AAOX3 Chest: lung [place] clear to auscultation Heart: RRR, no murmur Abdomen: non-distended, + epigastric tenderness to palpation, +BS Labs: Labs Test 12/30/24 09:57 12/30/24 03:48 12/29/24 14:30 12/29/24 14:19 Range/Units Prothrombin Time 10.9 9.3-11.8 sec Prothrombin Time INR 1.03 0.9-1.15 Activated Partial Thromboplast Time 24.2 L 24.5-34.5 SEC White Blood Count 5.5 4.4-10.8 10^3/uL Red Blood Count 4.34 4.0-5.20 10^6/uL Hemoglobin 7.3 L 12.2-16.2 g/dL Hematocrit 24.3 L 36.0-46.0 % Mean Corpuscular Volume 56.1 L 80.0-100.0 fL Mean Corpuscular Hemoglobin 16.8 L 28.0-32.0 pg Mean Corpuscular Hemoglobin Concent 30.0 L 32.0-36.0 g/dL Red Cell Distribution Width 18.7 H 11.8-14.3 % Platelet Count 259 140-450 10^3/uL Mean Platelet Volume 8.5 6.9-10.8 fL Neutrophils (%) (Auto) 49.3 37.0-80.0 % Lymphocytes (%) (Auto) 33.4 10.0-50.0 % Monocytes (%) (Auto) 12.3 H 0.0-12.0 % Eosinophils (%) (Auto) 4.3 0.0-7.0 % Basophils (%) (Auto) 0.7 0.0-2.0 % Neutrophils # (Auto) 2.7 1.6-8.6 10 ^3/uL Lymphocytes # (Auto) 1.8 0.4-5.4 10 ^3/uL Monocytes # (Auto) 0.7 0-1.3 10 ^3/uL Eosinophils # (Auto) 0.2 0-0.8 10 ^3/uL Basophils # (Auto) 0 0-0.2 10 ^3/uL Nucleated Red Blood Cells 0.1 % Sodium Level 140 136-145 mmol/L Potassium Level 4.3 3.5-5.1 mmol/L Chloride Level 106 98-107 mmol/L Carbon Dioxide Level 23 20-31 mmol/L Anion Gap 11 5-15 Blood Urea Nitrogen 7 L 9-23 mg/dL Creatinine 0.67 0.550-1.02 mg/dL Glomerular Filtration Rate Calc 101 >90 mL/min BUN/Creatinine Ratio 10.4 10.0-20.0 Serum Glucose 106 74-106 mg/dL Calcium Level 8.7 8.7-10.4 mg/dL Total Bilirubin 0.3 0.2-1.0 mg/dL Aspartate Amino Transferase (AST) 18 <34 U/L Alanine Aminotransferase (ALT) 14 7-40 U/L Alkaline Phosphatase 175 H 46-116 U/L Total Protein 6.9 5.7-8.2 g/dL Albumin 4.2 3.2-4.8 g/dL Platelet Estimate Adequate Hypochromasia (manual) Marked Microcytosis Marked Plasma/Serum Blood Alcohol < 3.0 <10 mg/dL Urine Color Colorless Yellow Urine Clarity Clear Clear Urine pH 7.5 5.0-9.0 Urine Specific [place] 1.003 1.001-1.035 Urine Protein Negative Negative Urine Ketones Negative Negative Urine Blood Negative Negative /uL Urine Nitrite Negative Negative Urine Bilirubin Negative Negative Urine Urobilinogen Normal Negative mg/dL Urine Leukocyte Esterase Negative Negative /uL Urine RBC <1 0 - 4 /hpf Urine Microscopic WBC < 1 0-5 /HPF Urine Squamous Epithelial Cells Few <5 /hpf Urine Bacteria Few H None Seen /hpf Urine Glucose Normal Normal mg/dL Imaging: CT abdomen pelvis IMPRESSION: 1. No acute pathology in the pelvis. Note made the study results are severely limited lack of IV and oral contrast Assessment: GI bleed Abdominal pain Anemia History of H. pylori History of alcohol use Plan: Discussed with Dr. Gudino - Pt will be scheduled for an EGD tomorrow 12/2024. Pt was informed of the risks (bleeding, infection, perforation, reaction to sedation medications and cardiopulmonary arrest) and benefit and is agreeable to undergo the procedures. Protonix and Zofran NPO after midnight Discussed plan with patient and RN Thank you for this consult Date of Service: Dec 30, 2024 Billing Provider: CHACHA ARMJIO Common Visit Codes: CONSULT ONLY Consultation Codes: [id number] CONSULT <60MIN CHACHA ARMIJO Dec 30, 2024 13:58
[2024-12-30] MEDS: METOCLOPRAMIDE HCL 5MG/ml INJ 2ml VIAL IV PRN (15:44)
[2024-12-30 17:00] VITALS: BP 129/78; PULSE 86; RESP 20; TEMP 98.3; O2SAT 96
[2024-12-30 21:00] VITALS: BP 153/73; PULSE 90; RESP 18; TEMP 98.6; O2SAT 98
[2024-12-31] VITALS (12 sets, daily range): BP systolic 77–173; BP diastolic 48–78; PULSE 71–90; RESP 17–22; TEMP 97.9–99.1; O2SAT 95–100
--- NOTE | 2024-12-31 07:14 | DVHINCON2 ---
Date of service: Dec 31, 2024 History of Present Illness HPI Patient is a 59-year-old female who presented to the hospital with black stool/GI bleeding and abdominal pain. She was somehow feeling dizzy and not good. Cardiology is involved for cardiac aspects of care. Patient is known to our practice from outside. Outside lab had revealed anemia. Denies chest pain/palpitation/loss of consciousness/orthopnea/PND. Does have history of hypertension/hyperlipidemia NSVT as outpatient. Home Meds Active Scripts Omeprazole Magnesium (Omeprazole) 20 Mg Tab, 20 MG PO BID, #40 TAB Prov:JIA VITALE 02/08/22 Metoclopramide Hcl (Reglan) 10 Mg Tab, 10 MG PO BID, #20 TAB Prov:JIA VITALE 02/08/22 Ibuprofen Micronized (Ibuprofen) 800 Mg Tab, 800 MG PO TID PRN, #30 TAB Prov:SUMMER EDGE 12/27/21 Reported Medications Ropinirole Hydrochloride (Ropinirole Hcl) 3 Mg Tab, 1 TAB PO 12/30/24 Atorvastatin Calcium (ATORVASTATIN CALCIUM) 20 Mg Tab, 20 MG PO DAILY, TAB 12/30/24 Pantoprazole Sodium (PANTOPRAZOLE SODIUM) 40 Mg Inj, 40 MG PO, INJ 12/30/24 Famotidine (PEPCID TABLET) 20 Mg Tb, 20 MG PO, TAB 12/30/24 Gabapentin (Gabapentin) 300 Mg Cap, 300 MG PO, CAP 12/30/24 Losartan Potassium (Losartan Potassium) 100 Mg Tab, 100 MG PO, TAB 12/30/24 Aspirin (AVANI ASPIRIN EC LOW DOSE) 81 Mg Tab, 81 MG PO, TAB 12/30/24 Propranolol HCl (Propranolol Hydrochloride) 40 Mg Tab, 40 MG PO, TAB 12/30/24 Chlorthalidone (Chlorthalidone) 25 Mg Tab, 25 MG PO, TAB 12/30/24 Ropinirole Hydrochloride (Ropinirole Hcl) 2 Mg Tab, 2 MG PO, TAB 12/30/24 Magnesium Oxide (MAGNESIUM OXIDE) 400 Mg Tab, 250 MG PO, TAB 12/30/24 Discontinued Reported Medications Omeprazole (Prilosec Susp (For Gt)) 20 Mg Ss, 40 MG PO, ML 12/30/24 Metoclopramide Hcl (Metoclopramide Hcl) 10 Mg Tab, 10 MG PO, TAB 12/30/24 Past Medical History Others Past medical history includes hypertension, hyperlipidemia, COPD, anxiety disorder, SVT, GERD, restless leg syndrome, history of treatment for H pylori, history of tubal ligation and old history of alcohol abuse (many years ago). Patient Family History: Diabetes mellitus G8 FATHER Hypertension G8 MOTHER G8 FATHER Smoker: No Hx (Negative) Review of Systems Constitutional: Malaise Gastrointestinal: Abdominal Pain All Other Systems Fourteen point review of system was performed. Relevant findings as per above and as per HPI. Otherwise negative. H&P Exam Vital Signs Vital Signs Date Time Temp Pulse Resp B/P (MAP) Pulse Ox O2 Delivery O2 Flow Rate FiO2 12/31/24 05:00 98.4 73 18 116/66 (83) 98 98.4 12/29/24 19:59 Room Air* 0 21 General Appeara: Well developed Head Exam: Normal inspection Eye Exam: bilateral eye PERRL Pulmonary/Respiratory: Normal inspection Cardiovascular/Chest: Normal inspection Peripheral Pulses: 2+ carotid (R), 2+ carotid (L), 2+ femoral (R), 2+ femoral (L), 2+ dorsalis pedis (R), 2+ dorsalis pedis (L), 2+ Radial (R), 2+ Radial (L) Abdominal Exam: Normal bowel sounds Neuro/Mental St: Alert, Oriented Appearance: Appropriate appearance Eye contact/ Speech: Cooperative Labs/Xrays Labs Test 12/30/24 09:57 12/30/24 03:48 12/29/24 14:30 12/29/24 14:19 Range/Units Prothrombin Time 10.9 9.3-11.8 sec Prothrombin Time INR 1.03 0.9-1.15 Activated Partial Thromboplast Time 24.2 L 24.5-34.5 SEC White Blood Count 5.5 4.4-10.8 10^3/uL Red Blood Count 4.34 4.0-5.20 10^6/uL Hemoglobin 7.3 L 12.2-16.2 g/dL Hematocrit 24.3 L 36.0-46.0 % Mean Corpuscular Volume 56.1 L 80.0-100.0 fL Mean Corpuscular Hemoglobin 16.8 L 28.0-32.0 pg Mean Corpuscular Hemoglobin Concent 30.0 L 32.0-36.0 g/dL Red Cell Distribution Width 18.7 H 11.8-14.3 % Platelet Count 259 140-450 10^3/uL Mean Platelet Volume 8.5 6.9-10.8 fL Neutrophils (%) (Auto) 49.3 37.0-80.0 % Lymphocytes (%) (Auto) 33.4 10.0-50.0 % Monocytes (%) (Auto) 12.3 H 0.0-12.0 % Eosinophils (%) (Auto) 4.3 0.0-7.0 % Basophils (%) (Auto) 0.7 0.0-2.0 % Neutrophils # (Auto) 2.7 1.6-8.6 10 ^3/uL Lymphocytes # (Auto) 1.8 0.4-5.4 10 ^3/uL Monocytes # (Auto) 0.7 0-1.3 10 ^3/uL Eosinophils # (Auto) 0.2 0-0.8 10 ^3/uL Basophils # (Auto) 0 0-0.2 10 ^3/uL Nucleated Red Blood Cells 0.1 % Sodium Level 140 136-145 mmol/L Potassium Level 4.3 3.5-5.1 mmol/L Chloride Level 106 98-107 mmol/L Carbon Dioxide Level 23 20-31 mmol/L Anion Gap 11 5-15 Blood Urea Nitrogen 7 L 9-23 mg/dL Creatinine 0.67 0.550-1.02 mg/dL Glomerular Filtration Rate Calc 101 >90 mL/min BUN/Creatinine Ratio 10.4 10.0-20.0 Serum Glucose 106 74-106 mg/dL Calcium Level 8.7 8.7-10.4 mg/dL Total Bilirubin 0.3 0.2-1.0 mg/dL Aspartate Amino Transferase (AST) 18 <34 U/L Alanine Aminotransferase (ALT) 14 7-40 U/L Alkaline Phosphatase 175 H 46-116 U/L Total Protein 6.9 5.7-8.2 g/dL Albumin 4.2 3.2-4.8 g/dL Platelet Estimate Adequate Hypochromasia (manual) Marked Microcytosis Marked Plasma/Serum Blood Alcohol < 3.0 <10 mg/dL Urine Color Colorless Yellow Urine Clarity Clear Clear Urine pH 7.5 5.0-9.0 Urine Specific [place] 1.003 1.001-1.035 Urine Protein Negative Negative Urine Ketones Negative Negative Urine Blood Negative Negative /uL Urine Nitrite Negative Negative Urine Bilirubin Negative Negative Urine Urobilinogen Normal Negative mg/dL Urine Leukocyte Esterase Negative Negative /uL Urine RBC <1 0 - 4 /hpf Urine Microscopic WBC < 1 0-5 /HPF Urine Squamous Epithelial Cells Few <5 /hpf Urine Bacteria Few H None Seen /hpf Urine Glucose Normal Normal mg/dL Assessment/Plan Plan Patient is a 59-year-old female who presented to the hospital with black stool/GI bleeding and abdominal pain. She was somehow feeling dizzy and not good. Cardiology is involved for cardiac aspects of care. Patient is known to our practice from outside. Outside lab had revealed anemia. Denies chest pain/palpitation/loss of consciousness/orthopnea/PND. Does have history of hypertension/hyperlipidemia NSVT as outpatient. Not in acute distress. No JVD. Mucosa is pink and wet. No carotid bruit. No goiter. Lungs are clear to auscultation. Cardiac: Regular, no thrill/gallop. Abdomen is soft. Bowel sound is increased. There is no gross mass. Extremities do not reveal edema. Past medical history includes hypertension, hyperlipidemia, COPD, anxiety disorder, SVT, GERD, restless leg syndrome, history of treatment for H pylori, history of tubal ligation and old history of alcohol abuse (many years ago). Echocardiogram of December 23, 2024 (performed in the office) revealed ejection fraction of 65-70%, mild mitral regurgitation, trace tricuspid regurgitation. As there was no good tricuspid regurgitation jet, right ventricular systolic pressure could not be estimated. Hemoglobin: 7.9 - 7.3 Creatinine: 0.75 - 0.67 Potassium: 4.1 - 4.3 CT of the abdomen and pelvis revealed: FINDINGS: Liver and spleen are normal in size without focal mass. No renal masses, stones or hydronephrosis. No masses or enlargement of the adrenal glands or pancreas. No biliary dilatation. No gallstones. No distention of bowel loops to suggest mechanical obstruction of bowel. The appendix is normal in appearance. No free fluid. Within the pelvis, bladder is smooth walled without stones. No abnormal masses or fluid collections. IMPRESSION: 1. No acute pathology in the pelvis. Note made the study results are severely limited lack of IV and oral contrast Tele reveals sinus rhythm Patient is a 59-year-old female who presented with abdominal pain/black stool/GI bleeding/anemia. Has been seen by GI. Known history of hypertension/hyperlipidemia/GERD/SVT Anemia GI bleeding SVT Hypertension Hyperlipidemia Old history of alcohol abuse (years ago) Cardiac suggestion for management: Managed on telemetry Follow-up electrolytes and kidney function tests and correct abnormalities Evaluation and management of GI bleeding/abdominal pain/anemia as per primary team/GI Cardiac-gimenez, the patient is low risk patient low risk EGD/colonoscopy. Cardiac-gimenez, you can proceed with EGD/colonoscopy under appropriate intra and postoperative hemodynamic monitoring. Avoid hypotension Further evaluation and management depends on the above and clinical course Thank you for consultation A total of 75 minutes was spent reviewing the patient record, examining the patient, making a diagnostic and therapeutic plan, discussing this plan with medical personnel, following up on diagnostic studies and following the patient for clinical stability excluding any and all procedures. At least 50% of this time was spent in direct, [id number] contact. Thank you for allowing me to participate in this patient's care. Further recommendations will depend on patient's clinical course. Please do not hesitate to contact me if you have any questions or concerns. This medical document was created using electronic medical record system with [employer] computerized dictation system. Although this document has been carefully reviewed, there may still be some phonetic and typographical errors. These areas are purely typographical due to the imperfection of the software programs, and do not reflect any compromise in the patient's medical care. Plan discussed with: Patient, Other (nurse) VINH ROBERTSON MD Dec 31, 2024 07:14
[2024-12-31 07:28] LABS: Basophils # (auto) 0 10 ^3/uL (0-0.2); Basophils % (auto) 0.8 % (0.0-2.0); Eosinophils # (auto) 0.2 10 ^3/uL (0-0.8); Eosinophils % (auto) 4.9 % (0.0-7.0); Hematocrit 23.7 % (36.0-46.0); Lymphocytes # (auto) 1.6 10 ^3/uL (0.4-5.4); Lymphocytes % (auto) 31.5 % (10.0-50.0); Mean Corpuscular Hemoglobin 16.7 pg (28.0-32.0); Mean Corpuscular Hgb Conc. 29.7 g/dL (32.0-36.0); Mean Corpuscular Volume 56.3 fL (80.0-100.0); Monocytes # (auto) 0.6 10 ^3/uL (0-1.3); Monocytes % (auto) 11.5 % (0.0-12.0); Neutrophils # (auto) 2.5 10 ^3/uL (1.6-8.6); Neutrophils % (auto) 51.3 % (37.0-80.0); Nucleated Red Blood Cells % 0.2 %; Platelet Count (auto) 231 10^3/uL (140-450); Red Cell Distribution Width 19.4 % (11.8-14.3); White Blood Cell 4.9 10^3/uL (4.4-10.8)
[2024-12-31 07:46] LABS: Alanine Aminotransferase 13 U/L (7-40); Anion Gap 11 (5-15); Aspartate Aminotransferase 21 U/L (<34); BUN/Creatinine Ratio 8.6 (10.0-20.0); Calcium 9.1 mg/dL (8.7-10.4); Carbon Dioxide 21 mmol/L (20-31); Potassium 4.2 mmol/L (3.5-5.1); Sodium 142 mmol/L (136-145); Total Protein 6.9 g/dL (5.7-8.2)
[2024-12-31 07:47] LABS: Albumin 4.3 g/dL (3.2-4.8)
[2024-12-31 08:02] LABS: Alkaline Phosphatase 184 U/L (46-116); Bilirubin, Total 0.3 mg/dL (0.2-1.0); Blood Urea Nitrogen 6 mg/dL (9-23); Chloride 110 mmol/L (98-107); Glucose 108 mg/dL (74-106)
--- NOTE | 2024-12-31 11:40 | DVH ---
EXAM: XY CHEST PORTABLE CLINICAL HISTORY: PRE-PROCEDURE TECHNIQUE: Single upright view of the chest WID: COMPARISON: XY CHEST XRAY 1 VIEW on DOS: 06/02/24 FINDINGS: Lines and tubes: None Chest: The heart size and pulmonary vasculature is within normal limits. No pleural effusion, pneumothorax, or consolidation. Linear scarring or atelectasis in the left lung base. The osseous structures are grossly intact. Degenerative changes of the bilateral shoulders. Prominen t collar osteophyte formation of the left humeral head. IMPRESSION: No acute cardiopulmonary abnormality.
[2024-12-31] MEDS ORDERED: MIDAZOLAM HCL 2MG/2ML 2ml VIAL (1mg/ml) ONE (12:09)
[2024-12-31] MEDS ORDERED: PROPOFOL 10 MG/ML 20 ML IV ONE (12:09)
[2024-12-31] MEDS ORDERED: SODIUM CHLORIDE LOCK 10 ML ONE (12:09)
[2024-12-31] MEDS ORDERED: KETAMINE 50mg/ML 1ml syringe ONE (12:09)
[2024-12-31] MEDS ORDERED: ONDANSETRON HCL 4 MG/2 ML VIAL ONE (12:09)
[2024-12-31] MEDS ORDERED: fentaNYL CITRATE 0 ML ONE (12:09)
[2024-12-31] MEDS: METOCLOPRAMIDE HCL 5MG/ml INJ 2ml VIAL IV ONE (12:30)
[2024-12-31] MEDS ORDERED: HYDROmorphone HCL 2 MG/ML VL/or syr IV PRN ×2 (12:30)
[2024-12-31] MEDS ORDERED: MORPHINE SULFATE 4 MG/ML SYR/VIAL IV PRN (12:30)
[2024-12-31] MEDS ORDERED: MORPHINE SULFATE INJ 2 MG/ml SYRG IV PRN (12:30)
[2024-12-31] MEDS: LIDOCAINE VISCOUS 2% 15ML UD ONE (13:01)
[2024-12-31] MEDS ORDERED: fentaNYL CITRATE 100 MCG/2 ML VL ONE (13:02)
--- NOTE | 2024-12-31 13:27 | DVHOP2 ---
Operative Report DATE OF OPERATION: 12/31/24 PROCEDURE: Upper Endoscopy with biopsy. PREOPERATIVE INDICATION: The patient is a 59 -year-old female undergoing endoscopy for GI bleed POSTOPERATIVE DIAGNOSES: 1. Mild antral gastritis with pyloric channel erosion and minimal oozing from scope pressure 2. 1 cm sliding-type hiatal hernia with mild grade a erosive esophagitis and some distal esophageal plaques suspicious for Annabelle from which biopsies were obtained 3. Patient had an abnormal whitish plaque-like tissue overgrowth on the arytenoids and posterior pharynx 4. Otherwise normal examination up to the 2nd and 3rd part of the duodenum with good bile drainage and no active bleeding PROCEDURE PERFORMED BY: Olivia Gudino GI NURSE: Irene SCOPE: Olympus videoendoscope. ASA CLASS: 3 PREOPERATIVE MEDICATIONS: Nolan thomas, Dr. Hendrix PROCEDURE IN DETAIL: After obtaining an informed consent, the patient was placed on left lateral decubitus position. The patient was then sedated with the above medications. A bite block was placed between her teeth. The endoscope was then passed through the oropharynx, into the esophagus, and through the stomach and pylorus up to the second and third part of the duodenum. The endoscope was then withdrawn. Second and 3rd part of the duodenum and the duodenal bulb were normal. There was good bile drainage. The pre-pyloric area and antrum showed mild gastritis and there was minimal oozing from the pyloric channel from scope pressure due to superficial erosion On retroflexion the fundus cardia and angularis were normal. Duodenal and gastric biopsies were obtained. The endoscope was then withdrawn into distal esophagus where the patient had a 0.5-1 cm hiatal hernia slightly irregular squamocolumnar junction and grade a esophagitis GE junction biopsies were obtained and also biopsies were obtained frozen whitish plaques which were suspicious for candidal esophagitis In the oropharynx and posterior pharynx there was an abnormal whitish plaque like tissue overgrowth on the arytenoids and posterior pharynx The patient tolerated the procedure well without difficulty. COMPLICATIONS : None SPECIMENS: Biopsies Gastric biopsies Esophageal biopsies DISPOSITION: Transfer back to the floor Stable PLAN: 1. Await for biopsy result 2. Will place pt on Protonix 40 mg bid 3. Carafate 1 g p.o. twice a day 4. Nystatin swish and swallow 5 mL p.o. three times a day 5. Resume GI soft diet advance as tolerated 6. Routine elective screening colonoscopy which can be arranged as an outpatient 7. Outpatient referral to ENT for re-evaluation of her posterior pharynx and arytenoids OLIVIA GUDINO MD Dec 31, 2024 13:27
[2024-12-31] MEDS: IRON SUCROSE COMPLEX 110 ML IV SCH (14:26)
--- NOTE | 2024-12-31 16:48 | DVHPN2 ---
Progress Note Date Seen: Dec 31, 2024 Medical Necessity Reason Pt with a Central, PICC or Fol: No Subjective Review of Systems: CVS:Normal, RESPIRATORY:Normal Objective vital signs Vital Sign Date Time Temp Pulse Resp B/P (MAP) Pulse Ox O2 Delivery O2 Flow Rate FiO2 12/31/24 16:00 98.9 84 18 158/69 98.9 12/31/24 14:45 96 12/31/24 13:20 Mask 6.0 12/31/24 13:20 100 Total Intake and Output 12/30/24 12/30/24 12/31/24 15:00 23:00 07:00 Intake Total 2240 ml 1000 ml Balance 2240 ml 1000 ml medications Current Medications Medications Dose Ordered Sig/Jn Route Start Time Stop Time Status Last Admin Dose Admin Sodium Chloride 1,000 ml @ 120 mls/hr Q8H20M IV 12/29/24 16:00 12/31/24 08:47 120 MLS/HR Acetaminophen/ Hydrocodone Bitart 1 tab Q4HP PRN PO 12/29/24 16:00 12/31/24 05:50 1 TAB Ondansetron HCl 4 mg Q4HP PRN IV 12/29/24 16:00 12/30/24 12:23 4 MG Acetaminophen 650 mg Q6HP PRN PO 12/29/24 16:00 12/30/24 20:31 650 MG Morphine Sulfate 2 mg Q4HPRN PRN IV 12/29/24 16:00 Nitroglycerin 0.4 mg Q5MINP PRN SL 12/29/24 16:00 Morphine Sulfate 2 mg Q30M PRN IV 12/29/24 16:00 Pantoprazole Sodium 40 mg BID IV 12/29/24 22:00 12/31/24 08:47 40 MG Metoclopramide HCl 10 mg Q6HPRN PRN IV 12/30/24 15:45 12/31/24 10:40 10 MG Iron Sucrose 110 ml @ 110 mls/hr DAILY@1200 IV 12/31/24 12:00 01/04/25 12:59 12/31/24 14:26 110 MLS/HR Sucralfate 1 gm QID@0600,1130,1700,2200 PO 12/31/24 17:00 UNV Nystatin 5 ml QID MT 12/31/24 18:00 UNV Examination: GENERAL:Normal, LUNGS:Normal, CVS:Normal, ABDOMEN:Normal, SKIN:Normal laboratory and microbiology Laboratory Tests 12/31/24 07:13 Test 12/31/24 07:13 Range/Units Serum Glucose 108 H 74-106 mg/dL Labs and/or images reviewed: Labs reviewed by me, Image(s) reviewed by me Problem List/Assessment/Plan Problem List/Assessment/Plan - GI bleed Stop NSAID, PPI, stool for OB, GI consult - EtOH director of volunteer services consult for EtOH, monitoring -Benign essential hypertension Medication, monitoring -COPD Medication, monitoring Assessment/Plan Subjective Patient is awake and alert. Objective Patient states she stopped drinking 2 years ago. Patient states she uses Motrin sometimes as needed and she uses Tylenol a lot due to chronic migraines. Patient has a history of COPD. Patient states she had melena for the past several days. Patient is S/P EGD by Dr. Gudino there was no active bleeding noted however did show mild gastritis with pyloric channel erosion and minimal oozing, and a hiatal hernia with mild grade a erosive esophagitis and possible Annabelle, patient coincidentally was found to have abnormal whitish plaque in the posterior pharynx. Hemoglobin today was seven transfuse 1 unit of packed red blood cells and place patient on IV iron. Plan Continue PPI. Continue IV fluids. GI consult. Monitor for active signs or symptoms of bleeding. Transfuse for hemoglobin below seven, continue with IV iron, GI consult appreciated Plan discussed with: Patient, Other Plan discussed with: Patient My Orders My Orders Orders - SANDRINE TURNER Procedure Category Date Status Time Iron Sucrose Complex PHA 12/31/24 In Process (Venofer) 12:00 Date of Service: Dec 31, 2024 Billing Provider: NIURKA ZUÑIGA MD Common Visit Codes: [id number] INP/OBS CARE (MOD) SANDRINE TURNER Dec 31, 2024 16:48
[2024-12-31] MEDS: NYSTATIN (MOUTH-THROAT) 500,000 UNITS/5 ML SUSP MT SCH (18:22)
[2024-12-31] MEDS: SUCRALFATE 1 GM/10 ML ORAL SUSP PO SCH (18:22)
[2024-12-31] MEDS: hydrALAZINE HCL 20 MG/ML VL IV PRN (18:24)
[2024-12-31] MEDS: MELATONIN 5 MG TAB PO SCH (22:00)
[2024-12-31] MEDS: LORazepam 0.5 MG TAB PO ONE (22:47)
[2025-01-01] VITALS (8 sets, daily range): BP systolic 100–147; BP diastolic 59–74; PULSE 83–101; RESP 16–19; TEMP 97.8–99.1; O2SAT 93–97
[2025-01-01 07:46] LABS: Basophils # (auto) 0 10 ^3/uL (0-0.2); Basophils % (auto) 0.7 % (0.0-2.0); Eosinophils # (auto) 0.2 10 ^3/uL (0-0.8); Eosinophils % (auto) 4.8 % (0.0-7.0); Hematocrit 29.1 % (36.0-46.0); Hemoglobin 9.1 g/dL (12.2-16.2); Lymphocytes # (auto) 1.4 10 ^3/uL (0.4-5.4); Lymphocytes % (auto) 26.9 % (10.0-50.0); Mean Corpuscular Hemoglobin 18.9 pg (28.0-32.0); Mean Corpuscular Hgb Conc. 31.1 g/dL (32.0-36.0); Mean Corpuscular Volume 60.7 fL (80.0-100.0); Monocytes # (auto) 0.6 10 ^3/uL (0-1.3); Monocytes % (auto) 11.3 % (0.0-12.0); Neutrophils # (auto) 2.8 10 ^3/uL (1.6-8.6); Neutrophils % (auto) 56.3 % (37.0-80.0); Nucleated Red Blood Cells % 0.1 %; Platelet Count (auto) 227 10^3/uL (140-450); Red Cell Distribution Width 27.2 % (11.8-14.3)
[2025-01-01 08:08] LABS: Alanine Aminotransferase 13 U/L (7-40); Anion Gap 11 (5-15); Calcium 9.2 mg/dL (8.7-10.4); Carbon Dioxide 22 mmol/L (20-31); Glucose 103 mg/dL (74-106); Total Protein 6.8 g/dL (5.7-8.2)
[2025-01-01 08:09] LABS: Albumin 4.2 g/dL (3.2-4.8); Aspartate Aminotransferase 16 U/L (<34); Bilirubin, Total 0.3 mg/dL (0.2-1.0); Chloride 113 mmol/L (98-107); Sodium 146 mmol/L (136-145)
[2025-01-01 08:10] LABS: Alkaline Phosphatase 186 U/L (46-116); BUN/Creatinine Ratio 7.2 (10.0-20.0); Blood Urea Nitrogen < 5 mg/dL (9-23)
[2025-01-01] MEDS: amLODIPine BESYLATE 5 MG TAB PO SCH (10:09)
--- NOTE | 2025-01-01 12:40 | DVHPN2 ---
Progress Note - Dictate Date Seen: Jan 01, 2025 Medical Necessity Reason Pt with a Central, PICC or Fol: No vital signs Vital Sign Date Time Temp Pulse Resp B/P (MAP) Pulse Ox O2 Delivery O2 Flow Rate FiO2 01/01/25 10:09 121/61 01/01/25 08:50 98.0 83 16 94 98.0 01/01/25 08:00 Room Air* 0 21 Total Intake and Output 12/31/24 12/31/24 01/01/25 15:00 23:00 07:00 Intake Total 10 ml 0 ml 1550 ml Balance 10 ml 0 ml 1550 ml medications Current Medications Medications Dose Ordered Sig/Jn Route Start Time Stop Time Status Last Admin Dose Admin Sodium Chloride 1,000 ml @ 120 mls/hr Q8H20M IV 12/29/24 16:00 01/01/25 10:10 120 MLS/HR Acetaminophen/ Hydrocodone Bitart 1 tab Q4HP PRN PO 12/29/24 16:00 12/31/24 18:22 1 TAB Ondansetron HCl 4 mg Q4HP PRN IV 12/29/24 16:00 12/30/24 12:23 4 MG Acetaminophen 650 mg Q6HP PRN PO 12/29/24 16:00 01/01/25 10:10 650 MG Morphine Sulfate 2 mg Q4HPRN PRN IV 12/29/24 16:00 Nitroglycerin 0.4 mg Q5MINP PRN SL 12/29/24 16:00 Morphine Sulfate 2 mg Q30M PRN IV 12/29/24 16:00 Pantoprazole Sodium 40 mg BID IV 12/29/24 22:00 01/01/25 10:09 40 MG Metoclopramide HCl 10 mg Q6HPRN PRN IV 12/30/24 15:45 01/01/25 05:21 10 MG Iron Sucrose 110 ml @ 110 mls/hr DAILY@1200 IV 12/31/24 12:00 01/04/25 12:59 12/31/24 14:26 110 MLS/HR Sucralfate 1 gm QID@0600,1130,1700,2200 PO 12/31/24 17:00 01/01/25 05:15 1 GM Nystatin 5 ml QID MT 12/31/24 18:00 01/01/25 05:15 5 ML Hydralazine HCl 10 mg Q4HP PRN IV 12/31/24 17:45 12/31/24 18:24 10 MG Amlodipine Besylate 5 mg DAILY PO 01/01/25 10:00 01/01/25 10:09 5 MG Melatonin 5 mg HS PO 12/31/24 22:00 laboratory and microbiology Laboratory Tests 01/01/25 07:03 Test 01/01/25 07:03 Range/Units Serum Glucose 103 74-106 mg/dL Assessment/Plan Patient is a 59-year-old female who presented to the hospital with black stool/GI bleeding and abdominal pain. She was somehow feeling dizzy and not good. Cardiology is involved for cardiac aspects of care. Patient is known to our practice from outside. Outside lab had revealed anemia. Denies chest pain/palpitation/loss of consciousness/orthopnea/PND. Does have history of hypertension/hyperlipidemia NSVT as outpatient. Not in acute distress. No JVD. Mucosa is pink and wet. No carotid bruit. No goiter. Lungs are clear to auscultation. Cardiac: Regular, no thrill/gallop. Abdomen is soft. Bowel sound is increased. There is no gross mass. Extremities do not reveal edema. Past medical history includes hypertension, hyperlipidemia, COPD, anxiety disorder, SVT, GERD, restless leg syndrome, history of treatment for H pylori, history of tubal ligation and old history of alcohol abuse (many years ago). Echocardiogram of December 23, 2024 (performed in the office) revealed ejection fraction of 65-70%, mild mitral regurgitation, trace tricuspid regurgitation. As there was no good tricuspid regurgitation jet, right ventricular systolic pressure could not be estimated. Hemoglobin: 7.9 - 7.3 - 9.1 Creatinine: 0.75 - 0.67 - 0.69 Potassium: 4.1 - 4.3 - 4.0 CT of the abdomen and pelvis revealed: FINDINGS: Liver and spleen are normal in size without focal mass. No renal masses, stones or hydronephrosis. No masses or enlargement of the adrenal glands or pancreas. No biliary dilatation. No gallstones. No distention of bowel loops to suggest mechanical obstruction of bowel. The appendix is normal in appearance. No free fluid. Within the pelvis, bladder is smooth walled without stones. No abnormal masses or fluid collections. IMPRESSION: 1. No acute pathology in the pelvis. Note made the study results are severely limited lack of IV and oral contrast EGD revealed 1. Mild antral gastritis with pyloric channel erosion and minimal oozing from scope pressure 2. 1 cm sliding-type hiatal hernia with mild grade a erosive esophagitis and some distal esophageal plaques suspicious for Annabelle from which biopsies were obtained.3. Patient had an abnormal whitish plaque-like tissue overgrowth on the arytenoids and posterior pharynx 4. Otherwise normal examination up to the 2nd and 3rd part of the duodenum with good bile drainage and no active bleeding Tele reveals sinus rhythm Patient is a 59-year-old female who presented with abdominal pain/black stool/GI bleeding/anemia. Has been seen by GI. Known history of hypertension/hyperlipidemia/GERD/SVT Anemia GI bleeding SVT Hypertension Hyperlipidemia Old history of alcohol abuse (years ago) Gastritis with pyloric channel erosion Esophageal plaques, ? annabelle Hiatal hernia Esophagitis Cardiac suggestion for management: Managed on telemetry Follow-up electrolytes and kidney function tests and correct abnormalities Evaluation and management of GI bleeding/abdominal pain/anemia as per primary team/GI Cardiac-gimenez, the patient is low risk patient low risk EGD/colonoscopy. Cardiac-gimenez, you can proceed with EGD/colonoscopy under appropriate intra and postoperative hemodynamic monitoring. Avoid hypotension Further evaluation and management depends on the above and clinical course Thank you for consultation A total of 75 minutes was spent reviewing the patient record, examining the patient, making a diagnostic and therapeutic plan, discussing this plan with medical personnel, following up on diagnostic studies and following the patient for clinical stability excluding any and all procedures. At least 50% of this time was spent in direct, [id number] contact. Thank you for allowing me to participate in this patient's care. Further recommendations will depend on patient's clinical course. Please do not hesitate to contact me if you have any questions or concerns. This medical document was created using electronic medical record system with [employer] computerized dictation system. Although this document has been carefully reviewed, there may still be some phonetic and typographical errors. These areas are purely typographical due to the imperfection of the software programs, and do not reflect any compromise in the patient's medical care. Plan discussed with: Patient (Patient and Primary RN ) TEQUILA FRANCOIS Jan 01, 2025 12:40
--- NOTE | 2025-01-01 14:08 | DVHPN2 ---
Progress Note Date Seen: Jan 01, 2025 Medical Necessity Reason Pt with a Central, PICC or Fol: No Subjective Review of Systems: CVS:Normal, GI:Normal (Denies hematemesis, hematochezia), NEURO:Normal Objective vital signs Vital Sign Date Time Temp Pulse Resp B/P (MAP) Pulse Ox O2 Delivery O2 Flow Rate FiO2 01/01/25 10:09 121/61 01/01/25 08:50 98.0 83 16 94 98.0 01/01/25 08:00 Room Air* 0 21 Total Intake and Output 12/31/24 12/31/24 01/01/25 15:00 23:00 07:00 Intake Total 10 ml 0 ml 1550 ml Balance 10 ml 0 ml 1550 ml medications Current Medications Medications Dose Ordered Sig/Jn Route Start Time Stop Time Status Last Admin Dose Admin Sodium Chloride 1,000 ml @ 120 mls/hr Q8H20M IV 12/29/24 16:00 01/01/25 10:10 120 MLS/HR Acetaminophen/ Hydrocodone Bitart 1 tab Q4HP PRN PO 12/29/24 16:00 12/31/24 18:22 1 TAB Ondansetron HCl 4 mg Q4HP PRN IV 12/29/24 16:00 12/30/24 12:23 4 MG Acetaminophen 650 mg Q6HP PRN PO 12/29/24 16:00 01/01/25 10:10 650 MG Morphine Sulfate 2 mg Q4HPRN PRN IV 12/29/24 16:00 Nitroglycerin 0.4 mg Q5MINP PRN SL 12/29/24 16:00 Morphine Sulfate 2 mg Q30M PRN IV 12/29/24 16:00 Pantoprazole Sodium 40 mg BID IV 12/29/24 22:00 01/01/25 10:09 40 MG Metoclopramide HCl 10 mg Q6HPRN PRN IV 12/30/24 15:45 01/01/25 05:21 10 MG Iron Sucrose 110 ml @ 110 mls/hr DAILY@1200 IV 12/31/24 12:00 01/04/25 12:59 01/01/25 12:42 110 MLS/HR Sucralfate 1 gm QID@0600,1130,1700,2200 PO 12/31/24 17:00 01/01/25 12:42 1 GM Nystatin 5 ml QID MT 12/31/24 18:00 01/01/25 12:42 5 ML Hydralazine HCl 10 mg Q4HP PRN IV 12/31/24 17:45 12/31/24 18:24 10 MG Amlodipine Besylate 5 mg DAILY PO 01/01/25 10:00 01/01/25 10:09 5 MG Melatonin 5 mg HS PO 12/31/24 22:00 Examination: GENERAL:Normal, LUNGS:Normal, CVS:Normal, ABDOMEN:Normal, SKIN:Normal, NEURO:Normal laboratory and microbiology Laboratory Tests 01/01/25 07:03 Test 01/01/25 07:03 Range/Units Serum Glucose 103 74-106 mg/dL Problem List/Assessment/Plan Problem List/Assessment/Plan - GI bleed Stop NSAID, PPI, stool for OB, GI consult - EtOH 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 Objective Patient states she stopped drinking 2 years ago. Patient states she uses Motrin sometimes as needed and she uses Tylenol a lot due to chronic migraines. Patient has a history of COPD. Patient states she had melena for the past several days. Patient is S/P EGD by Dr. Gudino there was no active bleeding noted however did show mild gastritis with pyloric channel erosion and minimal oozing, and a hiatal hernia with mild grade a erosive esophagitis and possible Annabelle, patient coincidentally was found to have abnormal whitish plaque in the posterior pharynx. Hemoglobin today is has significantly improved to 9.1. We will advance diet to cardiac, patient is tolerating diet by tomorrow we will discharge Plan Continue PPI. Continue IV fluids. GI consult. Monitor for active signs or symptoms of bleeding. Transfuse for hemoglobin below seven, continue with IV iron, GI consult appreciated, possible discharge tomorrow advance diet to cardiac Plan discussed with: Patient, Other Plan discussed with: Patient My Orders My Orders Orders - SANDRINE TURNER PATROL DEPUTY SHERIFF Procedure Category Date Status Time Hydralazine Injection PHA 12/31/24 In Process (Apresoline Inject 17:45 Amlodipine Tablet PHA 01/01/25 In Process (Norvasc Tablet) 10:00 Cardiac DIET 01/01/25 Transmitted Diet-2gna,Lofat,Lochol Breakfast Date of Service: Jan 01, 2025 Billing Provider: NIURKA ZUÑIGA MD Common Visit Codes: [id number] INP/OBS CARE (MOD) SANDRINE TURNER PATROL DEPUTY SHERIFF Jan 01, 2025 14:08
[2025-01-02 01:00] VITALS: BP 113/70; PULSE 71; RESP 18; TEMP 97.9; O2SAT 91
[2025-01-02 05:00] VITALS: BP 118/69; PULSE 75; RESP 18; TEMP 98; O2SAT 93
[2025-01-02 08:00] VITALS: PULSE 78; PULSE 90; RESP 18; O2SAT 97
[2025-01-02 09:00] VITALS: BP 120/53; PULSE 85; RESP 16; TEMP 98.3; O2SAT 94
[2025-01-02 10:06] LABS: Albumin 3.9 g/dL (3.2-4.8); Alkaline Phosphatase 174 U/L (46-116); Anion Gap 10 (5-15); Aspartate Aminotransferase 17 U/L (<34); BUN/Creatinine Ratio 6.9 (10.0-20.0); Blood Urea Nitrogen < 5 mg/dL (9-23); Calcium 9.2 mg/dL (8.7-10.4); Carbon Dioxide 23 mmol/L (20-31); Chloride 111 mmol/L (98-107); Glucose 165 mg/dL (74-106); Potassium 4.1 mmol/L (3.5-5.1); Sodium 144 mmol/L (136-145); Total Protein 6.5 g/dL (5.7-8.2)
[2025-01-02 10:07] LABS: Alanine Aminotransferase 9 U/L (7-40); Bilirubin, Total 0.2 mg/dL (0.2-1.0)
[2025-01-02 10:46] LABS: Basophils # (auto) 0 10 ^3/uL (0-0.2); Eosinophils # (auto) 0.2 10 ^3/uL (0-0.8); Lymphocytes # (auto) 1.1 10 ^3/uL (0.4-5.4); Monocytes # (auto) 0.5 10 ^3/uL (0-1.3); Neutrophils # (auto) 2.7 10 ^3/uL (1.6-8.6); White Blood Cell 4.5 10^3/uL (4.4-10.8)
[2025-01-02 10:49] LABS: Basophils % (auto) 1.1 % (0.0-2.0); Hematocrit 27.7 % (36.0-46.0); Hemoglobin 8.6 g/dL (12.2-16.2); Lymphocytes % (auto) 23.2 % (10.0-50.0); Mean Corpuscular Volume 61.4 fL (80.0-100.0); Monocytes % (auto) 10.5 % (0.0-12.0); Neutrophils % (auto) 60.2 % (37.0-80.0); Nucleated Red Blood Cells % 0.1 %; Platelet Count (auto) 199 10^3/uL (140-450); Red Blood Cells 4.52 10^6/uL (4.0-5.20); Red Cell Distribution Width 26.5 % (11.8-14.3)
[2025-01-02] MEDS ORDERED: SUCR1TAB PO (12:23)
[2025-01-02] MEDS ORDERED: FERR-7 PO (12:23)
[2025-01-02] MEDS ORDERED: PANT40TA2 PO (12:23)
[2025-01-02] MEDS ORDERED: SUM25T PO (12:23)
--- NOTE | 2025-01-02 12:23 | DVHDS2 ---
Discharge Summary Date of Admission Dec 29, 2024 at 15:59 Date of Discharge: Jan 02, 2025 Admitting Diagnosis GI bleed Labs/Diagnostic Data: Laboratory Results Test 01/02/25 10:15 01/02/25 08:45 12/30/24 09:57 12/29/24 14:30 White Blood Count 4.5 10^3/uL (4.4-10.8) Red Blood Count 4.52 10^6/uL (4.0-5.20) Hemoglobin 8.6 g/dL (12.2-16.2) Hematocrit 27.7 % (36.0-46.0) Mean Corpuscular Volume 61.4 fL (80.0-100.0) Mean Corpuscular Hemoglobin 19.0 pg (28.0-32.0) Mean Corpuscular Hemoglobin Concent 31.0 g/dL (32.0-36.0) Red Cell Distribution Width 26.5 % (11.8-14.3) Platelet Count 199 10^3/uL (140-450) Mean Platelet Volume 8.4 fL (6.9-10.8) Neutrophils (%) (Auto) 60.2 % (37.0-80.0) Lymphocytes (%) (Auto) 23.2 % (10.0-50.0) Monocytes (%) (Auto) 10.5 % (0.0-12.0) Eosinophils (%) (Auto) 5.0 % (0.0-7.0) Basophils (%) (Auto) 1.1 % (0.0-2.0) Neutrophils # (Auto) 2.7 10 ^3/uL (1.6-8.6) Lymphocytes # (Auto) 1.1 10 ^3/uL (0.4-5.4) Monocytes # (Auto) 0.5 10 ^3/uL (0-1.3) Eosinophils # (Auto) 0.2 10 ^3/uL (0-0.8) Basophils # (Auto) 0 10 ^3/uL (0-0.2) Nucleated Red Blood Cells 0.1 % Sodium Level 144 mmol/L (136-145) Potassium Level 4.1 mmol/L (3.5-5.1) Chloride Level 111 mmol/L (98-107) Carbon Dioxide Level 23 mmol/L (20-31) Anion Gap 10 (5-15) Blood Urea Nitrogen < 5 mg/dL (9-23) Creatinine 0.72 mg/dL (0.550-1.02) Glomerular Filtration Rate Calc 97 mL/min (>90) BUN/Creatinine Ratio 6.9 (10.0-20.0) Serum Glucose 165 mg/dL (74-106) Calcium Level 9.2 mg/dL (8.7-10.4) Total Bilirubin 0.2 mg/dL (0.2-1.0) Aspartate Amino Transferase (AST) 17 U/L (<34) Alanine Aminotransferase (ALT) 9 U/L (7-40) Alkaline Phosphatase 174 U/L (46-116) Total Protein 6.5 g/dL (5.7-8.2) Albumin 3.9 g/dL (3.2-4.8) Prothrombin Time 10.9 sec (9.3-11.8) Prothrombin Time INR 1.03 (0.9-1.15) Activated Partial Thromboplast Time 24.2 SEC (24.5-34.5) Platelet Estimate Adequate Hypochromasia (manual) Marked Microcytosis Marked Plasma/Serum Blood Alcohol < 3.0 mg/dL (<10) Test 12/29/24 14:19 Urine Color Colorless (Yellow) Urine Clarity Clear (Clear) Urine pH 7.5 (5.0-9.0) Urine Specific [place] 1.003 (1.001-1.035) Urine Protein Negative (Negative) Urine Ketones Negative (Negative) Urine Blood Negative /uL (Negative) Urine Nitrite Negative (Negative) Urine Bilirubin Negative (Negative) Urine Urobilinogen Normal mg/dL (Negative) Urine Leukocyte Esterase Negative /uL (Negative) Urine RBC <1 /hpf (0 - 4) Urine Microscopic WBC < 1 /HPF (0-5) Urine Squamous Epithelial Cells Few /hpf (<5) Urine Bacteria Few /hpf (None Seen) Urine Glucose Normal mg/dL (Normal) Other Laboratory Tests 01/02/25 10:15 01/02/25 08:45 Brief Hx & Hospital Course: Patient was admitted for GI bleed patient reported taking lots of NSAIDs and Tylenol at home for chronic migraine headaches. Patient was found to have GI bleed and developed acute blood loss anemia. Patient required 1 unit of packed red blood cells and was given IV iron infusions. Patient is S/P EGD by Dr. Gudino and was found to have no active bleeding noted however did show mild gastritis with pyloric channel erosion and minimal oozing, and a hiatal hernia with mild grade and erosive esophagitis and possible Annabelle, patient was subsequently found to coincidentally have abnormal whitish plaque in the posterior pharynx and needs outpatient ENT follow up. Although EGD was negative for acute bleeding, patient likely had scant blood loss due to upper GI bleed. Patient was advised not to take lots of Tylenol or ibuprofen at home, patient was advised to follow up with her PCP for Neurology consult for migraine management. Who was sent Imitrex to assist patient with migraines. Patient was also sent home on Protonix, and sucralfate and iron and is to follow up with PCP within one week of discharge. Patient was in agreement with discharge and was to advised to return if symptoms worsen. Condition at Discharge: Fair Final Diagnosis/Problems List - GI bleed possible upper GI - EtOH -Benign essential hypertension -COPD -acute blood loss anemia Discharge Disposition: Home Discharge Instruct/Medications Diet: Cardiac 2g Na,low cholest Activity: No Restrictions, As Tolerated Follow Up/Referral: PCP within [address] Gudino within 2 weeks Discharge Statement: "Patient was advised to return to the ER or call 911 if any headaches, dizziness, shortness of breath, chest pain, abdominal pain, bleeding, fevers, or worsening of medical condition. Patient was counseled about treatment plan, medications, possible side effects, patientverbalized understanding. All questions were answered to the best of my ability. This discharge took greater then 30 minutes in planning, reviewing documentation, counseling the patient, and discussing with other team members." ASSESSMENT ASSESSMENT Assessment - GI bleed - EtOH -Benign essential hypertension -COPD -acute blood loss anemia SANDRINE TURNER Jan 02, 2025 12:23
[2025-01-02 13:00] VITALS: BP 130/61; PULSE 81; RESP 16; TEMP 98.6; O2SAT 95
--- NOTE | 2025-01-02 15:35 | DVHPN2 ---
Progress Note - Dictate Date Seen: Jan 02, 2025 Has the PT tested + for MRSA If YES, has PT been informed?: No Medical Necessity Reason Pt with a Central, PICC or Fol: No Subjective No new complaints Patient resting comfortably Patient is tolerating diet EGD findings reviewed with patient vital signs Vital Sign Date Time Temp Pulse Resp B/P (MAP) Pulse Ox O2 Delivery O2 Flow Rate FiO2 01/02/25 13:00 98.6 81 16 130/61 (84) 95 98.6 01/02/25 08:00 Room Air* 0 21 Total Intake and Output 01/01/25 01/01/25 01/02/25 15:00 23:00 07:00 Intake Total 716 ml 1850 ml 650 ml Balance 716 ml 1850 ml 650 ml medications Current Medications Medications Dose Ordered Sig/Jn Route Start Time Stop Time Status Last Admin Dose Admin Sodium Chloride 1,000 ml @ 120 mls/hr Q8H20M IV 12/29/24 16:00 01/02/25 11:40 120 MLS/HR Acetaminophen/ Hydrocodone Bitart 1 tab Q4HP PRN PO 12/29/24 16:00 01/01/25 22:37 1 TAB Ondansetron HCl 4 mg Q4HP PRN IV 12/29/24 16:00 12/30/24 12:23 4 MG Acetaminophen 650 mg Q6HP PRN PO 12/29/24 16:00 01/01/25 17:23 650 MG Morphine Sulfate 2 mg Q4HPRN PRN IV 12/29/24 16:00 Nitroglycerin 0.4 mg Q5MINP PRN SL 12/29/24 16:00 Morphine Sulfate 2 mg Q30M PRN IV 12/29/24 16:00 Pantoprazole Sodium 40 mg BID IV 12/29/24 22:00 01/02/25 09:18 40 MG Metoclopramide HCl 10 mg Q6HPRN PRN IV 12/30/24 15:45 01/02/25 05:41 10 MG Iron Sucrose 110 ml @ 110 mls/hr DAILY@1200 IV 12/31/24 12:00 01/04/25 12:59 01/02/25 12:11 110 MLS/HR Sucralfate 1 gm QID@0600,1130,1700,2200 PO 12/31/24 17:00 01/02/25 12:11 1 GM Nystatin 5 ml QID MT 12/31/24 18:00 01/02/25 12:11 5 ML Hydralazine HCl 10 mg Q4HP PRN IV 12/31/24 17:45 12/31/24 18:24 10 MG Amlodipine Besylate 5 mg DAILY PO 01/01/25 10:00 01/02/25 09:18 5 MG Melatonin 5 mg HS PO 12/31/24 22:00 objective Examination: GENERAL:Normal, LUNGS:Normal, CVS:Normal, ABDOMEN:Normal, SKIN:Normal, NEURO:Normal laboratory and microbiology Laboratory Tests 01/02/25 10:15 01/02/25 08:45 Test 01/02/25 08:45 Range/Units Serum Glucose 165 H 74-106 mg/dL Problems(with codes): (1) Autonomic dysfunction (2) Severe anemia (3) Lower GI bleed (4) Chest pain (5) Alcoholic gastritis (6) ETOH abuse Prognosis Plan Discharge planning is in progress Patient was advised to discontinue alcohol Protonix 40 mg p.o. daily Carafate 1 g p.o. q.h.s. She was advised to follow up in my office in 4-6 weeks to arrange elective colonoscopy Dietary Evaluation Review Comments: 1) Encourage optimal PO intake 2) Continue with IV Iron 3) Follow-up with gastroenterology and cardiology 4) Continue to monitor I&O, labs, and skin integrity Expected Outcomes/Goals: 1) appetite and labs to improve 2) f/u in 3-5 days Plan discussed with: Patient OLIVIA CODY MD Jan 02, 2025 15:35
== END 2025-01-02 15:30 | disposition home or self-care (01) | DRG 241 ==
LOC: ER 13:49 → OVERFLOW 15:59 → TELE-WESTW 12-31 17:15
PROVIDERS: ADMIT Nurse Practitioner; ATTEND Nurse Practitioner
PROC: 0DB98ZX Excision of Duodenum, Via Natural or Artificial Opening Endoscopic, Diagnostic (ICD-10-PCS; 2024-12-31)
PROC: 0DB68ZX Excision of Stomach, Via Natural or Artificial Opening Endoscopic, Diagnostic (ICD-10-PCS; 2024-12-31)
PROC: 0DB48ZX Excision of Esophagogastric Junction, Via Natural or Artificial Opening Endoscopic, Diagnostic (ICD-10-PCS; 2024-12-31)
PROC: 30233N1 Transfusion of Nonautologous Red Blood Cells into Peripheral Vein, Percutaneous Approach (ICD-10-PCS; principal; 2024-12-31 13:02)
DX: K29.71 Gastritis, unspecified, with bleeding (principal); K22.11 Ulcer of esophagus with bleeding; D62 Acute posthemorrhagic anemia; I47.10 Supraventricular tachycardia, unspecified; G90.89 Other disorders of autonomic nervous system; I10 Essential (primary) hypertension; J44.9 Chronic obstructive pulmonary disease, unspecified; K44.9 Diaphragmatic hernia without obstruction or gangrene; G43.909 Migraine, unspecified, not intractable, without status migrainosus; E78.5 Hyperlipidemia, unspecified; F10.90 Alcohol use, unspecified, uncomplicated; Z83.3 Family history of diabetes mellitus; Z86.19 Personal history of other infectious and parasitic diseases; Z87.891 Personal history of nicotine dependence; Z98.51 Tubal ligation status; Z79.899 Other long term (current) drug therapy
CPT/HCPCS: 36415; 43239; 71045; 74176; 80053; 80320; 81001; 85025; 85610; 85730; 86850; 86900; 86901; 86920; 96374; G0378; J1756; J2250; J2405; J2470; J2704

== ENCOUNTER 2025-04-14 08:31 | Day surgery (SDC) | payer OTHER ==
[~2025-04-14] VITALS: Ht 152.4 cm; Wt 62.6 kg
[~2025-04-14 08:31] MED LIST changes: -AMOX875T4 PO; +ASPI-378 PO; +ATOR20TA50 PO; +CHLO25TA2 PO; +FAMO20TA10 PO; +FERR-7 PO; +GABA-1250 PO; -IBUP-1455 PO; +LOSA-535 PO; +MAGN400T40 PO; -OMEP-434 PO; +PANT40TA2 PO; +PROP40TA6 PO; +ROPI3TAB16 PO; +SUCR1TAB PO; +SUM25T PO
--- NOTE | 2025-04-14 11:31 | DVHHP2 ---
GI H&P Pre-Op Assessment Date: 04/14/25 Chief complaint: anemia HPI: per clinic note Past medical history: per clinic note Past surgical history: per clinic note Family history: per clinic note Physical exam: General: NAD, AAOX3 HEENT: PERRL, no scleral icterus, normal hearing, gums without lesions or bleeding, oropharynx clear without erythema or exudate. Neck: Supple without enlargement of the thyroid, or lymphadenopathy. Chest: Normal size and shape, no tenderness, lung [place] clear to auscultation and percussion, nonlabored breathing. Heart: RRR, no murmur Abdomen: non-distended, no tenderness to palpation, +BS, no hepatosplenomegaly Extremities: no edema Neurological: CN II-XII intact, sensation intact in all extremities, 5+ strength in all extremities Skin: No rashes, No jaundice Assessment: - anemia Plan: - Colonoscopy - Risks (bleeding, infection, perforation, reaction to sedation medications and cardiopulmonary arrest) and benefit of the procedure were explained to patient. Patient agrees to undergo the procedure. ANGIE NICOLE MD Apr 14, 2025 11:31
[2025-04-14] MEDS ORDERED: fentaNYL CITRATE 100 MCG/2 ML VL ONE (11:44)
[2025-04-14] MEDS ORDERED: PROPOFOL 10 MG/ML 20 ML IV ONE (11:53)
--- NOTE | 2025-04-14 12:00 | DVHOP2 ---
Operative Report DATE OF OPERATION: 04/14/25 PROCEDURE: Colonoscopy. PREOPERATIVE INDICATION: The patient is a 60 -year-old female undergoing colonoscopy for anemia. POSTOPERATIVE DIAGNOSES: 1. 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 2. A 5 mm descending colon polyp was removed with hot snare and retrieved. 3. Small internal hemorrhoids. PROCEDURE PERFORMED BY: Jae Enamorado M.D. SCOPE: Olympus videocolonoscope. ASA CLASS: 3 PREOPERATIVE MEDICATIONS: MAC with Dr Vargas PROCEDURE IN DETAIL: After obtaining an informed consent, the patient was placed on left lateral decubitus position. She was then sedated with the above medications. A rectal examination was performed that was normal. The colonoscope was then passed through the anus into the rectosigmoid and through the descending, transverse, and ascending colon up to the cecum with v isualization of the appendiceal orifice, base of the cecum and the ileocecal valve. 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 A 5 mm descending colon polyp was removed with hot snare and retrieved. There were small internal hemorrhoids. The colonoscope was then withdrawn. The patient tolerated the procedure well without difficulty. WITHDRAWAL TIME: 9 minutes QUALITY OF THE PREP: [place] Bowel Prep score: 6 COMPLICATIONS : None SPECIMENS: Colon polyp DISPOSITION: D/C to home PLAN: 1. Repeat colonoscopy base on biopsy result JAE ENAMORADO MD Apr 14, 2025 12:00
--- NOTE | 2025-04-14 12:01 | DVHDS2 ---
Physician Discharge Progress N Final Diagnosis: AVM, colon polyp, small internal hemorrhoids Operations or Procedures: Operations or Procedures Colonoscopy with hot snare polypectomy and cauterization Condition on Discharge: Good Disposition: Home Discharge Instructions: Diet: Regular Activity: No Restrictions, As Tolerated Medications: Resume with previous home medications Follow Up Care: Discharge Statement: "Patient was advised to return to the ER or call 911 if any headaches, dizziness, shortness of breath, chest pain, abdominal pain, bleeding, fevers, or worsening of medical condition. Patient was counseled about treatment plan, medications, possible side effects, patientverbalized understanding. All questions were answered to the best of my ability. This discharge took greater then 30 minutes in planning, reviewing documentation, counseling the patient, and discussing with other team members." ANGIE NICOLE MD Apr 14, 2025 12:00
[2025-04-14 12:05] VITALS: PULSE 77; RESP 15
[2025-04-14 12:15] VITALS: PULSE 77; RESP 15
[2025-04-14 12:20] VITALS: BP 147/72; PULSE 69; RESP 19; O2SAT 97
== END 2025-04-14 12:36 | disposition home or self-care (01) ==
LOC: GI 08:31
PROVIDERS: ATTEND Internal Medicine Gastroenterology
DX: D64.9 Anemia, unspecified (principal); D12.4 Benign neoplasm of descending colon; K55.20 Angiodysplasia of colon without hemorrhage; K64.8 Other hemorrhoids; K21.9 Gastro-esophageal reflux disease without esophagitis; I10 Essential (primary) hypertension; J44.9 Chronic obstructive pulmonary disease, unspecified; G47.00 Insomnia, unspecified; M06.9 Rheumatoid arthritis, unspecified; M19.90 Unspecified osteoarthritis, unspecified site; Z79.899 Other long term (current) drug therapy; Z98.51 Tubal ligation status
CPT/HCPCS: 45385; 45388; 88305; J2704; J3010; J7030